=== PATIENT | male | born 1945 | race Hispanic/Latino ===

== ENCOUNTER 2019-04-02 18:02 | Inpatient (IN) | payer MEDICARE, BC ==
[2019-04-02 18:17] VITALS: BMI 23.7
--- NOTE | 2019-04-02 18:40 | C.PDOC ---
History Of Present Illness 73 year old male presents to the ED for evaluation of left leg swelling for the past week. Patient reports he had bee resting his leg on recliner, felt and injured his right hip. Patient denies fever, chills, nausea, vomit, CP, SOB, weakness, numbness, other injuries. Time Seen by Provider: 04/02/19 18:37 Chief Complaint (Nursing): Lower Extremity Problem/Injury History Per: Patient History/Exam Limitations: no limitations Onset/Duration Of Symptoms: Days Current Symptoms Are (Timing): Still Present Recent travel outside of the [place]: No Additional History Per: Patient Past Medical History Reviewed: Historical Data, Nursing Documentation, Vital Signs Vital Signs: Last Vital Signs Temp 98.1 F 04/02/19 18:18 Pulse 93 H 04/02/19 18:18 Resp 19 04/02/19 18:18 BP 151/75 H 04/02/19 18:18 Pulse Ox 100 04/02/19 18:18 Primary Care Provider: Samm Banda - Medical History PMH: CVA, HTN Surgical History: No Surg Hx - [facility] Procedures PACKED CELL TRANSFUSION (06/28/13) Family History: States: Unknown Family Hx - Social History Hx Tobacco Use: Yes Hx Alcohol Use: Yes Hx Substance Use: No - Immunization History Hx Tetanus Toxoid Vaccination: No Hx Influenza Vaccination: Yes Hx Pneumococcal Vaccination: No Review Of Systems Constitutional: Negative for: Fever, Chills Cardiovascular: Negative for: Chest Pain Respiratory: Negative for: Shortness of Breath Gastrointestinal: Negative for: Nausea, Vomiting, Abdominal Pain Musculoskeletal: Positive for: Leg Pain Skin: Negative for: Rash Neurological: Negative for: Weakness, Numbness, Headache Physical Exam - Physical Exam Appears: Non-toxic, No Acute Distress Skin: Normal Color, Warm, Dry Head: Atraumatic, Normacephalic Eye(s): bilateral: Normal Inspection Neck: Normal ROM, Supple Chest: Symmetrical Cardiovascular: Rhythm Regular Respiratory: Normal Breath Sounds, No Rales, No Rhonchi, No Wheezing Gastrointestinal/Abdominal: Soft, No Tenderness, No Guarding, No Rebound Extremity: Capillary Refill (< 2 seconds) Extremity: Bilateral: Atraumatic, Normal ROM, Other (cool feet) Pulses: Left Dorsalis Pedis: Normal (doppler), Right Dorsalis Pedis: Normal (doppler) Neurological/Psych: Oriented x3, Normal Speech, Normal Cognition Gait: Steady ED Course And Treatment - Laboratory Results Result Diagrams: 04/06/19 08:09 04/06/19 08:09 O2 Sat by Pulse Oximetry: 100 (ON RA) Pulse Ox Interpretation: Normal Progress Note: Plan: - Labs. - Hip x-Ray. - Right femur X-Ray Medical Decision Making Medical Decision Making: beside us pos for dvt. also bidnings of diminshed pulses b/l suspect chronic. (+)doppler pulses. seen by pmjd bedside heparin started. Disposition - Disposition Disposition: HOSPITALIZED Disposition Time: 08:00 Condition: STABLE - Clinical Impression Clinical Impression: Deep venous thrombosis of lower extremity - Scribe Statement The provider has reviewed the documentation as recorded by the Scribe Mingo Sawyer All medical record entries made by the Scribe were at my direction and personally dictated by me. I have reviewed the chart and agree that the record accurately reflects my personal performance of the history, physical exam, medical decision making, and the department course for this patient. I have also personally directed, reviewed, and agree with the discharge instructions and disposition. Decision To Admit - Pt Status Changed To: Hospital Disposition Of: Inpatient - Admit Certification Admit to Inpatient:: After my assessment, the patient will require hospitalization for at least two midnights. This is because of the severity of symptoms shown, intensity of services needed, and/or the medical risk in this patient being treated as an outpatient. - InPatient: Physician Admission Certification: I certify that this patient requires 2 or more midnights of care for the following reason:: large clot need s iv heparin - . Bed Request Type: Regular Admitting Physician: Samm Banda Patient Diagnosis: Deep venous thrombosis of lower extremity
[2019-04-02 19:15] LABS: BASO # 0.1 K/uL (0.0-0.2); BASO % 0.5 % (0.0-2.0); EOS # 0.1 K/uL (0.0-0.7); EOS % 0.8 % (0.0-4.0); HEMOGLOBIN 13.3 g/dL (12.0-18.0); LYMPH # 1.8 K/uL (1.0-4.3); LYMPH % 14.9 % (20.0-40.0); MEAN CELL VOLUME 85.9 fL (80.0-94.0); MEAN CORPUSCULAR HEMOGLOBIN 29.3 pg (27.0-31.0); MEAN CORPUSCULAR HGB CONC 34.1 g/dL (33.0-37.0); MEAN PLATELET VOLUME 8.1 fL (7.2-11.7); MONO % 8.1 % (0.0-10.0); NEUT # 9.3 K/uL (1.8-7.0); NEUT % 75.7 % (50.0-75.0); RBC 4.53 Mil/uL (4.40-5.90); RED CELL DISTRIBUTION WIDTH 14.7 % (11.5-14.5); WHITE BLOOD COUNT 12.4 K/uL (4.8-10.8)
[2019-04-02 19:24] LABS: ALBUMIN 4.1 g/dL (3.5-5.0); ALT/SGPT 7 U/L (21-72); AST/SGOT 12 U/L (17-59); BLOOD UREA NITROGEN 16 mg/dL (9-20); CALCIUM 9.7 mg/dl (8.6-10.4); GFR NON-AFRICAN AMERICAN 50
[2019-04-02 19:26] LABS: INR 1.2; PARTIAL THROMBOPLASTIN TIME 30.2 SECONDS (21-34); PROTHROMBIN TIME 13.1 SECONDS (9.7-12.2)
[2019-04-02] MEDS ORDERED: Enoxaparin 150 mg Syringe SC STA (19:52)
[2019-04-02] MEDS: Enoxaparin 60 mg Syringe SC SCH (19:54)
[2019-04-02] MEDS ORDERED: Enoxaparin 80 mg Syringe ONE (19:59)
[2019-04-02] MEDS: Oxycodone/Acetaminophen 5/325 mg Tab PO PRN (22:34)
[2019-04-02 22:53] VITALS: RESP 20
--- NOTE | 2019-04-03 03:55 | CP.PCM.HP ---
Present on Admission - Present on Admission Any Indicators Present on Admission: Yes History of Uncontrolled Diabetes: Yes Past Patient History - Past Social History Smoking Status: Heavy Smoker > 10 Cigarettes Daily - CARDIAC Hx Hypertension: Yes - NEUROLOGICAL HX Cerebrovascular Accident: Yes - ENDOCRINE/METABOLIC Hx Diabetes Mellitus Type 2: Yes - INTEGUMENTARY Hx Dermatological Problems: Yes Other/Comment: Skin cancer to L ear. - MUSCULOSKELETAL/RHEUMATOLOGICAL Hx Falls: Yes - PSYCHIATRIC Hx Substance Use: No - SURGICAL HISTORY Other/Comment: B/L eye sx. B/L ear sx - ANESTHESIA Hx Anesthesia: Yes Hx Anesthesia Reactions: No Meds Allergies/Adverse Reactions: Allergies Allergy/AdvReac Type Severity Reaction Status Date / Time No Known Allergies Allergy Verified 04/02/19 18:17 Results - Vital Signs Recent Vital Signs: Last Vital Signs Temp 98.8 F 04/02/19 23:34 Pulse 103 H 04/02/19 23:34 Resp 20 04/02/19 23:34 BP 145/77 04/02/19 23:34 Pulse Ox 97 04/02/19 23:34 - Labs Result Diagrams: 04/02/19 19:09 04/02/19 19:09 Labs: Laboratory Results - last 24 hr 04/02/19 04/02/19 04/02/19 19:09 19:09 19:09 WBC 12.4 H RBC 4.53 Hgb 13.3 D Hct 38.9 MCV 85.9 D MCH 29.3 MCHC 34.1 RDW 14.7 H Plt Count 332 MPV 8.1 Neut % (Auto) 75.7 H Lymph % (Auto) 14.9 L [place] % (Auto) 8.1 Eos % (Auto) 0.8 Baso % (Auto) 0.5 Neut # (Auto) 9.3 H Lymph # (Auto) 1.8 [place] # (Auto) 1.0 H Eos # (Auto) 0.1 Baso # (Auto) 0.1 PT 13.1 H INR 1.2 APTT 30.2 D-Dimer, Quantitative 2384 H Sodium 136 Potassium 5.1 Chloride 99 Carbon Dioxide 24 Anion Gap 18 BUN 16 Creatinine 1.4 Est GFR ( Amer) > 60 Est GFR (Non-Af Amer) 50 Random Glucose 259 H D Calcium 9.7 Total Bilirubin 0.5 AST 12 L ALT 7 L D Alkaline Phosphatase 104 Total Protein 8.4 H Albumin 4.1 Globulin 4.3 H Albumin/Globulin Ratio 1.0
--- NOTE | 2019-04-03 04:06 | CP.PCM.CON ---
History of Present Illness - History of Present Illness History of Present Illness: Vascular Surgery Consult Note for Dr. Norton Consult: PAD HPI: 73 year old male, past medical history significant for CVA, CAD, HTN, DM, HLD, Skin cancer on R ear, consulted for peripheral vascular disease. Patient states that he hurt his right hip by falling over 5 weeks ago. When he saw his PMD, he refused xrays/imaging. He has remained ambulatory since that time without pain or difficulty. In the last 3 days he noticed left lower extremity swelling that has gradually improved. There is no pain associated with the swelling. Denies f/c, n/v/d, SOB, CP, or urinary symptoms. PMH: CVA, CAD, HTN, DM, HLD, Skin cancer on R ear, Kidney stones PSH: Denies FH: Noncontributory SH: Smokes 1.5 PPD since age 12, social drinker, denies illicit drug use. Lives alone at home ALL: NKDA Meds: See MAR Review of Systems - Constitutional Constitutional: absent: Chills, Fever, Weight Loss - EENT Eyes: absent: Blurred Vision, Change in Vision Nose/Mouth/Throat: absent: Nasal Congestion, Nasal Discharge - Cardiovascular Cardiovascular: absent: Chest Pain, Dyspnea - Respiratory Respiratory: absent: Cough, Dyspnea - Gastrointestinal Gastrointestinal: absent: Abdominal Pain, Nausea, Vomiting - Genitourinary Genitourinary: absent: Difficulty Urinating, Dysuria - Musculoskeletal Musculoskeletal: Limited Range of Motion. absent: Back Pain, Deformity, Muscle Cramps, Neck Pain, Tingling - Integumentary Integumentary: Swelling. absent: Bleeding Lesions, Change in Hair, Changing Lesions, Skin Pain, Wounds - Neurological Neurological: absent: Abnormal Gait, Confusion, Dizziness, Lack of Coordination, Radicular Pain, Vertigo - Psychiatric Psychiatric: absent: Anxiety, Depression Past Patient History - Past Social History Smoking Status: Heavy Smoker > 10 Cigarettes Daily - CARDIAC Hx Hypertension: Yes - NEUROLOGICAL HX Cerebrovascular Accident: Yes - ENDOCRINE/METABOLIC Hx Diabetes Mellitus Type 2: Yes - INTEGUMENTARY Hx Dermatological Problems: Yes Other/Comment: Skin cancer to L ear. - MUSCULOSKELETAL/RHEUMATOLOGICAL Hx Falls: Yes - PSYCHIATRIC Hx Substance Use: No - SURGICAL HISTORY Other/Comment: B/L eye sx. B/L ear sx - ANESTHESIA Hx Anesthesia: Yes Hx Anesthesia Reactions: No Meds Allergies/Adverse Reactions: Allergies Allergy/AdvReac Type Severity Reaction Status Date / Time No Known Allergies Allergy Verified 04/02/19 18:17 - Medications Medications: Current Medications Aspirin (Ecotrin) 81 mg PO DAILY [facility] Enoxaparin Sodium (Lovenox) 60 mg SC Q12 [facility] Last Admin: 04/02/19 19:54 Dose: Not Given Finasteride (Proscar) 5 mg PO DAILY [facility] Insulin Human Regular (Novolin R) 0 unit SC ACHS [facility]; Protocol Oxycodone/Acetaminophen (Percocet 5/325 Mg Tab) 2 tab PO Q6H PRN PRN Reason: Pain, moderate (4-7) Stop: 04/05/19 19:17 Last Admin: 04/02/19 22:34 Dose: 2 tab Pneumococcal Polyvalent Vaccine (Pneumovax 23 Vaccine) 0.5 ml IM .ONCE ONE Stop: 04/03/19 10:01 Rosuvastatin Calcium (Crestor) 10 mg PO [facility] Last Admin: 04/02/19 21:49 Dose: 10 mg Physical Exam - Constitutional Appears: Well, Non-toxic, No Acute Distress - Head Exam Head Exam: ATRAUMATIC, NORMAL INSPECTION, NORMOCEPHALIC - Eye Exam Eye Exam: EOMI Pupil Exam: PERRL - ENT Exam ENT Exam: Mucous Membranes Dry - Respiratory Exam Respiratory Exam: NORMAL BREATHING PATTERN. absent: Wheezes, Respiratory Distress - Cardiovascular Exam Cardiovascular Exam: +S1, +S2 - GI/Abdominal Exam GI & Abdominal Exam: Normal Bowel Sounds, Soft. absent: Tenderness - Extremities Exam Extremities exam: Positive for: pedal edema, pedal pulses present. Negative for: calf tenderness, joint swelling, tenderness Additional comments: left lower extremity swelling and mild erythema of the foot palpable right and left DP/PT pulses - Neurological Exam Neurological exam: Alert, Oriented x3 - Psychiatric Exam Psychiatric exam: Normal Affect, Normal Mood - Skin Skin Exam: Dry, Erythema, Intact, Normal Color, Warm Results - Vital Signs Recent Vital Signs: Last Vital Signs Temp 98.8 F 04/02/19 23:34 Pulse 103 H 04/02/19 23:34 Resp 20 04/02/19 23:34 BP 145/77 04/02/19 23:34 Pulse Ox 97 04/02/19 23:34 - Labs Result Diagrams: 04/02/19 19:09 04/02/19 19:09 Labs: Laboratory Results - last 24 hr 04/02/19 04/02/19 04/02/19 19:09 19:09 19:09 WBC 12.4 H RBC 4.53 Hgb 13.3 D Hct 38.9 MCV 85.9 D MCH 29.3 MCHC 34.1 RDW 14.7 H Plt Count 332 MPV 8.1 Neut % (Auto) 75.7 H Lymph % (Auto) 14.9 L [place] % (Auto) 8.1 Eos % (Auto) 0.8 Baso % (Auto) 0.5 Neut # (Auto) 9.3 H Lymph # (Auto) 1.8 [place] # (Auto) 1.0 H Eos # (Auto) 0.1 Baso # (Auto) 0.1 PT 13.1 H INR 1.2 APTT 30.2 D-Dimer, Quantitative 2384 H Sodium 136 Potassium 5.1 Chloride 99 Carbon Dioxide 24 Anion Gap 18 BUN 16 Creatinine 1.4 Est GFR ( Amer) > 60 Est GFR (Non-Af Amer) 50 Random Glucose 259 H D Calcium 9.7 Total Bilirubin 0.5 AST 12 L ALT 7 L D Alkaline Phosphatase 104 Total Protein 8.4 H Albumin 4.1 Globulin 4.3 H Albumin/Globulin Ratio 1.0 Assessment & Plan - Assessment and Plan (Free Text) Assessment: 73M w/ new onset left lower extremity swelling s/p fall 5 weeks ago Plan: FU duplex US FU arterial US FU CTA KARMA/PVRs Leg elevation Compression stockings Further recommendations pending attending evaluation Will D/w Dr. Errol Medina PGY1
[2019-04-03] MEDS: Oxycodone/Acetaminophen 5/325 mg Tab PO PRN ×4 (04:10→23:40)
--- NOTE | 2019-04-03 07:21 | CP.PCM.PN ---
Subjective - Date & Time of Evaluation Date of Evaluation: 04/03/19 Time of Evaluation: 07:15 - Subjective Subjective: Vascular surgery note for Dr. Norton Patient seen and examined at bedside. No acute event overnight. Patient still reports swelling in LLE but denies pain. He states he is tolerating diet, pasing flatus and having bm. Patient denies fever/chills, cp, SOB, abd pain, n/v/d. Objective - Vital Signs/Intake and Output Vital Signs (last 24 hours): Temp Pulse Resp BP Pulse Ox 98.8 F 103 H 20 145/77 97 04/02/19 23:34 04/02/19 23:34 04/02/19 23:34 04/02/19 23:34 04/02/19 23:34 - Medications Medications: Current Medications Aspirin (Ecotrin) 81 mg PO DAILY [facility] Enoxaparin Sodium (Lovenox) 60 mg SC Q12 [facility] Last Admin: 04/02/19 19:54 Dose: Not Given Finasteride (Proscar) 5 mg PO DAILY [facility] Insulin Human Regular (Novolin R) 0 unit SC [facility]; Protocol Oxycodone/Acetaminophen (Percocet 5/325 Mg Tab) 2 tab PO Q6H PRN PRN Reason: Pain, moderate (4-7) Stop: 04/05/19 19:17 Last Admin: 04/03/19 04:10 Dose: 2 tab Pneumococcal Polyvalent Vaccine (Pneumovax 23 Vaccine) 0.5 ml IM .ONCE ONE Stop: 04/03/19 10:01 Rosuvastatin Calcium (Crestor) 10 mg PO [facility] Last Admin: 04/02/19 21:49 Dose: 10 mg - Labs Labs: 04/02/19 19:09 04/02/19 19:09 PT 13.1 SECONDS (9.7-12.2) H 04/02/19 19:09 INR 1.2 04/02/19 19:09 APTT 30.2 SECONDS (21-34) 04/02/19 19:09 - Additional Findings Additional findings: - Constitutional Appears: Well, Non-toxic, No Acute Distress - Head Exam Head Exam: ATRAUMATIC, NORMAL INSPECTION, NORMOCEPHALIC - Eye Exam Eye Exam: EOMI Pupil Exam: PERRL - ENT Exam ENT Exam: Mucous Membranes Dry - Respiratory Exam Respiratory Exam: NORMAL BREATHING PATTERN. absent: Wheezes, Respiratory Distress - Cardiovascular Exam Cardiovascular Exam: +S1, +S2 - GI/Abdominal Exam GI & Abdominal Exam: Normal Bowel Sounds, Soft. absent: Tenderness - Extremities Exam Extremities exam: Positive for: pedal edema, pedal pulses present. Negative for: calf tenderness, joint swelling, tenderness Additional comments: left lower extremity swelling and mild erythema of the foot palpable right and left DP/PT pulses - Neurological Exam Neurological exam: Alert, Oriented x3 - Psychiatric Exam Psychiatric exam: Normal Affect, Normal Mood - Skin Skin Exam: Dry, Erythema, Intact, Normal Color, Warm Assessment and Plan - Assessment and Plan (Free Text) Assessment: 73M with new onset left lower extremity swelling s/p fall 5 weeks ago need to rule out DVT Plan: FU duplex US FU arterial US Leg elevation Compression stockings Further recommendations as per Dr. Errol thomas PGY2
[2019-04-03] MEDS: (Novolin R) Insulin Human Regular 100 units/ml vial SC SCH ×4 (08:18→21:42)
[2019-04-03] MEDS ORDERED: Iodixanol 320 mg/ml 150 ml Bottle IV ONE (09:05)
--- NOTE | 2019-04-03 09:08 | RAD ---
Date of service: 04/02/2019 PROCEDURE: HISTORY: Trauma COMPARISON: None TECHNIQUE: Four views FINDINGS: No fracture or lytic lesion. Degenerative joint space narrowing right hip and mostly medial right femoral tibial joint compartment. Soft tissue Atherosclerotic vascular calcifications present. IMPRESSION: No fracture or lytic lesion seen. Right hip and right knee arthrosis. Atherosclerotic vascular calcifications/disease
--- NOTE | 2019-04-03 09:10 | RAD ---
Date of service: 04/02/2019 PROCEDURE: Radiographs of the pelvis. HISTORY: trauma COMPARISON: None. TECHNIQUE: 1 view obtained. FINDINGS: BONES: Pelvic Bones: Unremarkable. Hips: Mild hip joint space narrowing-bilateral JOINTS: Sacroiliac Joints: Trace sclerotic changes small focal areas mid SI joint levels-bilateral Pubic Symphysis: Trace degenerative subchondral sclerotic changes. OTHER FINDINGS: Atherosclerotic vascular calcifications present. Partly visualized inferior lumbar spondylosis. IMPRESSION: No fracture or lytic lesion. Mild inferior lumbar degenerative changes. Degenerative type minimal-mild sclerotic changes SI joints and pubic symphysis. Atherosclerotic vascular calcifications present.
[2019-04-03] MEDS ORDERED: Pneumococcal 23-Valent Vaccine IM ONE (10:00)
[2019-04-03] MEDS: Enoxaparin 60 mg Syringe SC SCH ×2 (10:44→21:44)
--- NOTE | 2019-04-03 12:06 | CT ---
Date of service: 04/03/2019 PROCEDURE: CT Angiography Abdomen, Pelvis and Lower Extremity with Contrast HISTORY: r/o PAD COMPARISON: None available. TECHNIQUE: Technique: CT angiography of the abdomen, pelvis and bilateral lower extremities performed in the arterial phase of enhancement. Coronal and sagittal reformats, and well as rotating MIP images of the vessels generated at the workstation. Intravenous contrast dose: 150 milliliters Visipaque 320 Radiation dose: Total exam DLP = 2297.27 mGy-cm. This CT exam was performed using one or more of the following dose reduction techniques: Automated exposure control, adjustment of the mA and/or kV according to patient size, and/or use of iterative reconstruction technique. FINDINGS: CT ANGIOGRAPHY: ABDOMINAL AORTA:: Moderate soft and calcific plaque throughout the abdominal aorta without stenosis or aneurysm. MAJOR AORTIC BRANCHES: Celiac [place]: Unremarkable. Superior mesenteric artery: Unremarkable. Inferior mesenteric artery: Unremarkable. Renal arteries: Unremarkable. PELVIC ARTERIES: Right Common Iliac: Unremarkable. Right External Iliac: Moderate plaque throughout the external iliac moderate stenosis in the proximal and mid segments. Right Internal Iliac: The plaque and moderate stenosis. Left Common Iliac: Mild plaque and no significant stenosis. Left External Iliac: Mild plaque and no significant stenosis. Left Internal Iliac: Unremarkable. RIGHT LOWER EXTREMITY ARTERIES: Right Common Femoral: Unremarkable. Right Superficial Femoral: Mild plaque with no significant stenosis. Right Profunda Femoris: Stenosis proximal profunda femoral artery. Right Popliteal:Unremarkable. Right Anterior Tibial: Heavily calcified with severe stenosis and occlusion in the proximal segment. Also likely occluded in the mid and distal segments. Right Tibioperoneal Trunk: Unremarkable. Right Posterior Tibial: Severely stenotic or occluded in the proximal mid segments. Right Peroneal: Stenosis in the proximal segment. Right dorsalis pedis : Unremarkable. LEFT LOWER EXTREMITY ARTERIES: Left Common Femoral: Unremarkable. Left Superficial Femoral: Mild plaque with no significant stenosis. Left Profunda Femoris: Unremarkable. Left Popliteal: Mild stenosis of popliteal artery. Left Anterior Tibial: Moderately stenotic in the proximal segment which is otherwise patent. Severe stenosis of the distal segment. Left Tibioperoneal Trunk: Unremarkable. Left Posterior Tibial: Stenosis or occlusion of proximal segment. Reconstitution of the mid and distal segments.. Left Peroneal: Unremarkable. Left Dorsalis pedis: Unremarkable. NON-ANGIOGRAPHIC ASPECT OF THE EXAM: LOWER THORAX: Unremarkable. LIVER: Unremarkable. No gross lesion or ductal dilatation. GALLBLADDER AND BILE DUCTS: Unremarkable. PANCREAS: Unremarkable. No gross lesion or ductal dilatation. SPLEEN: Unremarkable. ADRENALS: Unremarkable. No mass. KIDNEYS AND URETERS: Slight perinephric stranding. Multiple hypodense lesions throughout the kidney most of which are consistent with cysts. Some are too small to characterize. STOMACH AND BOWEL: Unremarkable. No obstruction. No gross mural thickening. APPENDIX: Normal appendix. PERITONEUM: Unremarkable. No free fluid. No free air. LYMPH NODES: There is several subcentimeter retroperitoneal lymph nodes. There is also a larger portacaval node measuring 2.2 x 1.2 cm and a 1.4 cm gastrohepatic lymph node. BLADDER: Unremarkable. REPRODUCTIVE: Unremarkable. BONES: No acute fracture. OTHER FINDINGS: None. IMPRESSION: CT angiogram abdomen/pelvis: 1. There is moderate calcific and soft plaque throughout the abdominal aorta without significant stenosis or aneurysm. 2. There is moderate stenosis of the right external iliac artery. There is moderate plaque in the right common iliac artery without significant stenosis. 3. Left common iliac artery and external iliac artery have mild plaque with no stenosis.. Right lower extremity CT angiogram: 1. The common femoral artery is unremarkable. 2. Moderate stenosis of the proximal profunda femoral artery. 3. Moderate plaque in the SFA without significant stenosis. 4. Popliteal artery is unremarkable. 5. Runoff shows a mild stenosis of the proximal peroneal artery which is otherwise unremarkable. Anterior tibial artery is heavily calcified in the proximal segment and severely stenotic. Mid and distal anterior tibial artery is likely occluded. Posterior tibial artery is occluded or severely stenotic in the proximal mid segments. Distal reconstitution. Left lower extremity CT angiogram: 1. The common femoral artery, profunda femoral artery, superficial femoral artery are normal. 2. Mild stenosis of popliteal artery 3. Runoff shows a patent peroneal artery. The posterior tibial artery is severely stenotic or occluded in the proximal segment with distal reconstitution. Anterior tibial artery is mildly stenotic in the proximal segment then is severely stenotic or occluded in the mid and distal segment. Nonvascular: There is a large portacaval lymph node measuring 2.2 x 1.4 centimeter and a gastrohepatic lymph node measuring 1.4 centimeters.
--- NOTE | 2019-04-03 14:47 | CP.PCM.CON ---
History of Present Illness - History of Present Illness History of Present Illness: Reason for consultation: Long history of smoking/COPD 73-year-old male with history of coronary artery disease, hypertension, diabetes , hyperlipidemia, CVA, skin cancer of right ear admitted with left lower extremity swelling and right hip pain after he fell 5 weeks ago. Also complaining of dyspnea on minimal exertion and slight cough. Patient has a long history of smoking but denies fever chills, denies chest pain. PMH: CVA, CAD, HTN, DM, HLD, Skin cancer on R ear, Kidney stones PSH: Denies FH: Noncontributory SH: Smokes 1.5 PPD since age 12, social drinker, denies illicit drug use. Lives alone at home ALL: NKDA Review of Systems - Review of Systems All systems: reviewed and no additional remarkable complaints except (Shortness of breath and cough) Past Patient History - Past Social History Smoking Status: Heavy Smoker > 10 Cigarettes Daily - CARDIAC Hx Hypertension: Yes - NEUROLOGICAL HX Cerebrovascular Accident: Yes - ENDOCRINE/METABOLIC Hx Diabetes Mellitus Type 2: Yes - INTEGUMENTARY Hx Dermatological Problems: Yes Other/Comment: Skin cancer to L ear. - MUSCULOSKELETAL/RHEUMATOLOGICAL Hx Falls: Yes - PSYCHIATRIC Hx Substance Use: No - SURGICAL HISTORY Other/Comment: B/L eye sx. B/L ear sx - ANESTHESIA Hx Anesthesia: Yes Hx Anesthesia Reactions: No Meds Allergies/Adverse Reactions: Allergies Allergy/AdvReac Type Severity Reaction Status Date / Time No Known Allergies Allergy Verified 04/02/19 18:17 - Medications Medications: Current Medications Aspirin (Ecotrin) 81 mg PO DAILY [facility] Last Admin: 04/03/19 10:44 Dose: 81 mg Enoxaparin Sodium (Lovenox) 60 mg SC Q12 [facility] Last Admin: 04/03/19 10:44 Dose: 60 mg Finasteride (Proscar) 5 mg PO DAILY [facility] Last Admin: 04/03/19 10:44 Dose: 5 mg Insulin Human Regular (Novolin R) 0 unit SC ACHS [facility]; Protocol Last Admin: 04/03/19 11:52 Dose: 10 units Metformin HCl (Glucophage) 500 mg PO BIDCC [facility] Oxycodone/Acetaminophen (Percocet 5/325 Mg Tab) 2 tab PO Q6H PRN PRN Reason: Pain, moderate (4-7) Stop: 04/05/19 19:17 Last Admin: 04/03/19 10:44 Dose: 2 tab Rosuvastatin Calcium (Crestor) 10 mg PO HS [facility] Last Admin: 04/02/19 21:49 Dose: 10 mg Physical Exam - Head Exam Head Exam: ATRAUMATIC, NORMOCEPHALIC - Eye Exam Eye Exam: Normal appearance - ENT Exam ENT Exam: Mucous Membranes Moist - Neck Exam Neck exam: Positive for: Normal Inspection - Respiratory Exam Respiratory Exam: Decreased Breath Sounds - Cardiovascular Exam Cardiovascular Exam: REGULAR RHYTHM - GI/Abdominal Exam GI & Abdominal Exam: Normal Bowel Sounds, Soft - Extremities Exam Extremities exam: Positive for: pedal edema Results - Vital Signs Recent Vital Signs: Last Vital Signs Temp 98.1 F 04/03/19 07:00 Pulse 77 04/03/19 07:00 Resp 20 04/03/19 07:00 BP 115/70 04/03/19 07:00 Pulse Ox 95 04/03/19 07:00 - Labs Result Diagrams: 04/02/19 19:09 04/02/19 19:09 Labs: Laboratory Results - last 24 hr 04/02/19 04/02/19 04/02/19 19:09 19:09 19:09 WBC 12.4 H RBC 4.53 Hgb 13.3 D Hct 38.9 MCV 85.9 D MCH 29.3 MCHC 34.1 RDW 14.7 H Plt Count 332 MPV 8.1 Neut % (Auto) 75.7 H Lymph % (Auto) 14.9 L Becker % (Auto) 8.1 Eos % (Auto) 0.8 Baso % (Auto) 0.5 Neut # (Auto) 9.3 H Lymph # (Auto) 1.8 Becker # (Auto) 1.0 H Eos # (Auto) 0.1 Baso # (Auto) 0.1 PT 13.1 H INR 1.2 APTT 30.2 D-Dimer, Quantitative 2384 H Sodium 136 Potassium 5.1 Chloride 99 Carbon Dioxide 24 Anion Gap 18 BUN 16 Creatinine 1.4 Est GFR ( Amer) > 60 Est GFR (Non-Af Amer) 50 POC Glucose (mg/dL) Random Glucose 259 H D Calcium 9.7 Total Bilirubin 0.5 AST 12 L ALT 7 L D Alkaline Phosphatase 104 Total Protein 8.4 H Albumin 4.1 Globulin 4.3 H Albumin/Globulin Ratio 1.0 05/14/19 05/14/19 07:51 11:00 WBC RBC Hgb Hct MCV MCH MCHC RDW Plt Count MPV Neut % (Auto) Lymph % (Auto) Becker % (Auto) Eos % (Auto) Baso % (Auto) Neut # (Auto) Lymph # (Auto) Becker # (Auto) Eos # (Auto) Baso # (Auto) PT INR APTT D-Dimer, Quantitative Sodium Potassium Chloride Carbon Dioxide Anion Gap BUN Creatinine Est GFR ( Amer) Est GFR (Non-Af Amer) POC Glucose (mg/dL) 273 H 412 H* Random Glucose Calcium Total Bilirubin AST ALT Alkaline Phosphatase Total Protein Albumin Globulin Albumin/Globulin Ratio Assessment & Plan (1) COPD (chronic obstructive pulmonary disease) Assessment and Plan: Start nebulizer treatment and PFTs as outpatient Status: Acute (2) Smoking addiction Assessment and Plan: Low-dose CAT scan of the chest to rule out lung nodule Status: Acute
--- NOTE | 2019-04-03 16:54 | CT ---
Date of service: 04/03/2019 PROCEDURE: CT Chest without contrast. HISTORY: Lung cancer screening COMPARISON: None. TECHNIQUE: Contiguous axial images were obtained through the chest without intravenous contrast enhancement. Sagittal and coronal reconstructions were performed. Maximum intensity projection (MIP) reconstructed images in the following planes: Axial only. Radiation dose (DLP): 117.67mGy-cm. This CT exam was performed using one or more of the following dose reduction techniques: Automated exposure control, adjustment of the mA and/or kV according to patient size, and/or use of iterative reconstruction technique. FINDINGS: Nodules: None. LUNGS: Normal lung parenchyma. Normal airway MEDIASTINUM: No thoracic aortic aneurysm. Normal size heart. Main pulmonary artery normal in size. The thyroid is normal. The esophagus is normal. Atherosclerotic calcification and mural plaque present. Findings are seen throughout the aorta LYMPH NODES: No significant lymphadenopathy. BONES: No fracture. No destructive lesion. UPPER ABDOMEN: No abnormality. OTHER FINDINGS: None. IMPRESSION: Lung - RADS 1: Negative. Recommendation: Continue annual screening with low dose CT in [address] shows that you have findings which will require follow-up imaging as per the [employer] guidelines.
--- NOTE | 2019-04-03 17:58 | CP.PCM.CON ---
<Benji Lombardi - Last Filed: 04/03/19 17:53> History of Present Illness - History of Present Illness History of Present Illness: PGY2 Cardiology Consult Note for Dr. Dimas Reason for Consult: PAD/CAD Patient is a 73 year old male with a past medical history of CVA, CAD, HTN, DM, HLD, kidney stones and skin CA on right ear presented to the hospital with a complaint of left leg swelling. He had initially fell and injured his right hip a few weeks ago so he had been resting his legs on a recliner. He has been feeling well and hip has not been hurting him as much, but his left leg has cont inued to swell. He started experiencing pain which brought him to the hospital. He had compression stockings placed and has been laying in bed since he was admitted yesterday. He reports that the swelling has decreased drastically and he is having minimal pain at this time. Denies fevers, chills, nausea, vomiting, diarrhea, constipation, chest pain, shortness of breath, diaphoresis, numbness or tingling. PMH: CVA, CAD, HTN, DM, HLD, kidney stones and skin CA on right ear PSH: Denies Family: Noncontributory Social: Smokes 1.5 PPD since age 12 (90+ pack year history), social drinker, denies illicit drug use. Lives alone at home ALL: NKDA Review of Systems - Review of Systems All systems: reviewed and no additional remarkable complaints except (as per HPI) Past Patient History - Past Medical History & Family History Past Medical History?: Yes - Past Social History Smoking Status: Heavy Smoker > 10 Cigarettes Daily - CARDIAC Hx Hypertension: Yes - NEUROLOGICAL HX Cerebrovascular Accident: Yes - ENDOCRINE/METABOLIC Hx Diabetes Mellitus Type 2: Yes - INTEGUMENTARY Hx Dermatological Problems: Yes Other/Comment: Skin cancer to L ear. - MUSCULOSKELETAL/RHEUMATOLOGICAL Hx Falls: Yes - PSYCHIATRIC Hx Substance Use: No - SURGICAL HISTORY Other/Comment: B/L eye sx. B/L ear sx - ANESTHESIA Hx Anesthesia: Yes Hx Anesthesia Reactions: No Meds Allergies/Adverse Reactions: Allergies Allergy/AdvReac Type Severity Reaction Status Date / Time No Known Allergies Allergy Verified 04/02/19 18:17 - Medications Medications: Current Medications Albuterol/Ipratropium (Duoneb 3 Mg/0.5 Mg (3 Ml) Ud) 3 ml INH RQ6 [facility] Aspirin (Ecotrin) 81 mg PO DAILY [facility] Last Admin: 04/03/19 10:44 Dose: 81 mg Enoxaparin Sodium (Lovenox) 60 mg SC Q12 [facility] Last Admin: 04/03/19 10:44 Dose: 60 mg Finasteride (Proscar) 5 mg PO DAILY [facility] Last Admin: 04/03/19 10:44 Dose: 5 mg Insulin Human Regular (Novolin R) 0 unit SC ACHS [facility]; Protocol Last Admin: 04/03/19 17:34 Dose: 2 units Metformin HCl (Glucophage) 500 mg PO BIDCC [facility] Last Admin: 04/03/19 17:33 Dose: 500 mg Oxycodone/Acetaminophen (Percocet 5/325 Mg Tab) 2 tab PO Q6H PRN PRN Reason: Pain, moderate (4-7) Stop: 04/05/19 19:17 Last Admin: 04/03/19 17:33 Dose: 2 tab Rosuvastatin Calcium (Crestor) 10 mg PO HS [facility] Last Admin: 04/02/19 21:49 Dose: 10 mg Physical Exam - Constitutional Appears: Non-toxic, No Acute Distress - Head Exam Head Exam: ATRAUMATIC, NORMOCEPHALIC - Eye Exam Eye Exam: Normal appearance - ENT Exam ENT Exam: Mucous Membranes Moist - Neck Exam Neck exam: Negative for: Lymphadenopathy, Thyromegaly - Respiratory Exam Respiratory Exam: Clear to Auscultation Bilateral, NORMAL BREATHING PATTERN. absent: Accessory Muscle Use, Rales, Rhonchi, Wheezes, Respiratory Distress - Cardiovascular Exam Cardiovascular Exam: REGULAR RHYTHM, +S1 - GI/Abdominal Exam GI & Abdominal Exam: Normal Bowel Sounds, Soft. absent: Distended, Firm, Guarding, Tenderness - Extremities Exam Extremities exam: Positive for: calf tenderness (left calf), pedal edema (1+ pitting b/l (left > right)), pedal pulses present - Neurological Exam Neurological exam: Alert - Psychiatric Exam Psychiatric exam: Normal Affect, Normal Mood - Skin Skin Exam: Dry, Warm Results - Vital Signs Recent Vital Signs: Last Vital Signs Temp 98.2 F 04/03/19 15:52 Pulse 73 04/03/19 15:52 Resp 20 04/03/19 15:52 BP 129/77 04/03/19 15:52 Pulse Ox 97 04/03/19 15:52 - Labs Result Diagrams: 04/02/19 19:09 04/02/19 19:09 Labs: Laboratory Results - last 24 hr 04/02/19 04/02/19 04/02/19 19:09 19:09 19:09 WBC 12.4 H RBC 4.53 Hgb 13.3 D Hct 38.9 MCV 85.9 D MCH 29.3 MCHC 34.1 RDW 14.7 H Plt Count 332 MPV 8.1 Neut % (Auto) 75.7 H Lymph % (Auto) 14.9 L Kershaw % (Auto) 8.1 Eos % (Auto) 0.8 Baso % (Auto) 0.5 Neut # (Auto) 9.3 H Lymph # (Auto) 1.8 Kershaw # (Auto) 1.0 H Eos # (Auto) 0.1 Baso # (Auto) 0.1 PT 13.1 H INR 1.2 APTT 30.2 D-Dimer, Quantitative 2384 H Sodium 136 Potassium 5.1 Chloride 99 Carbon Dioxide 24 Anion Gap 18 BUN 16 Creatinine 1.4 Est GFR ( Amer) > 60 Est GFR (Non-Af Amer) 50 POC Glucose (mg/dL) Random Glucose 259 H D Calcium 9.7 Total Bilirubin 0.5 AST 12 L ALT 7 L D Alkaline Phosphatase 104 Total Protein 8.4 H Albumin 4.1 Globulin 4.3 H Albumin/Globulin Ratio 1.0 04/03/19 04/03/19 04/03/19 07:51 11:00 16:29 WBC RBC Hgb Hct MCV MCH MCHC RDW Plt Count MPV Neut % (Auto) Lymph % (Auto) Kershaw % (Auto) Eos % (Auto) Baso % (Auto) Neut # (Auto) Lymph # (Auto) Kershaw # (Auto) Eos # (Auto) Baso # (Auto) PT INR APTT D-Dimer, Quantitative Sodium Potassium Chloride Carbon Dioxide Anion Gap BUN Creatinine Est GFR ( Amer) Est GFR (Non-Af Amer) POC Glucose (mg/dL) 273 H 412 H* 177 H Random Glucose Calcium Total Bilirubin AST ALT Alkaline Phosphatase Total Protein Albumin Globulin Albumin/Globulin Ratio Assessment & Plan - Assessment and Plan (Free Text) Plan: Left Lower Extremity Swelling CAD Vascular Surgery consulted, Dr. Norton * Duplex US * Arterial US * CT angio * KARMA/PVRs * Leg elevation and compression stockings CT angio 04/03: * CT angiogram abdomen/pelvis: * 1. There is moderate calcific and soft plaque throughout the abdominal aorta without significant stenosis or aneurysm. * 2. There is moderate stenosis of the right external iliac artery. There is moderate plaque in the right common iliac artery without significant stenosis. * 3. Left common iliac artery and external iliac artery have mild plaque with no stenosis.. * Right lower extremity CT angiogram: * 1. The common femoral artery is unremarkable. * 2. Moderate stenosis of the proximal profunda femoral artery. * 3. Moderate plaque in the SFA without significant stenosis. * 4. Popliteal artery is unremarkable. * 5. Runoff shows a mild stenosis of the proximal peroneal artery which is otherwise unremarkable. Anterior tibial artery is heavily calcified in the proximal segment and severely stenotic. Mid and distal anterior tibial artery is likely occluded. Posterior tibial artery is occluded or severely stenotic in the proximal mid segments. Distal reconstitution. * Left lower extremity CT angiogram: * 1. The common femoral artery, profunda femoral artery, superficial femoral artery are normal. * 2. Mild stenosis of popliteal artery * 3. Runoff shows a patent peroneal artery. The posterior tibial artery is severely stenotic or occluded in the proximal segment with distal reconstitution. Anterior tibial artery is mildly stenotic in the proximal segment then is severely stenotic or occluded in the mid and distal segment. * Nonvascular: * There is a large portacaval lymph node measuring 2.2 x 1.4 centimeter and a gastrohepatic lymph node measuring 1.4 centimeters. Pelvis/Femur X-rays show no acute fx f/u Duplex US, Arterial US and KARMA/PVRs Continue current medical management * Aspirin 81mg PO daily * Lovenox 60mg SC q12h * Crestor 10mg PO HS Case discussed with Dr. Wing Leblanc Maria C PGY2 <Benjamín Dimas - Last Filed: 04/03/19 22:43> Meds - Medications Medications: Current Medications Albuterol/Ipratropium (Duoneb 3 Mg/0.5 Mg (3 Ml) Ud) 3 ml INH RQ6 [facility] Aspirin (Ecotrin) 81 mg PO DAILY [facility] Last Admin: 04/03/19 10:44 Dose: 81 mg Enoxaparin Sodium (Lovenox) 60 mg SC Q12 [facility] Last Admin: 04/03/19 21:44 Dose: 60 mg Finasteride (Proscar) 5 mg PO DAILY [facility] Last Admin: 04/03/19 10:44 Dose: 5 mg Insulin Human Regular (Novolin R) 0 unit SC ACHS [facility]; Protocol Last Admin: 04/03/19 21:42 Dose: Not Given Metformin HCl (Glucophage) 500 mg PO BIDCC [facility] Last Admin: 04/03/19 17:33 Dose: 500 mg Oxycodone/Acetaminophen (Percocet 5/325 Mg Tab) 2 tab PO Q6H PRN PRN Reason: Pain, moderate (4-7) Stop: 04/05/19 19:17 Last Admin: 04/03/19 17:33 Dose: 2 tab Rosuvastatin Calcium (Crestor) 10 mg PO HS [facility] Last Admin: 04/03/19 21:41 Dose: 10 mg Results - Vital Signs Recent Vital Signs: Last Vital Signs Temp 98.2 F 04/03/19 15:52 Pulse 73 04/03/19 15:52 Resp 20 04/03/19 15:52 BP 129/77 04/03/19 15:52 Pulse Ox 97 04/03/19 15:52 - Labs Result Diagrams: 04/02/19 19:09 04/02/19 19:09 Labs: Laboratory Results - last 24 hr 04/03/19 04/03/19 04/03/19 07:51 11:00 16:29 POC Glucose (mg/dL) 273 H 412 H* 177 H 04/03/19 21:04 POC Glucose (mg/dL) 206 H Assessment & Plan - Assessment and Plan (Free Text) Plan: Patient seen examined and evaluated personally by me. Plan of care d/w the medical coding instructor and as documented
--- NOTE | 2019-04-03 21:13 | CP.PCM.PN ---
Subjective - Date & Time of Evaluation Date of Evaluation: 04/03/19 Time of Evaluation: 19:00 - Subjective Subjective: dict Objective - Vital Signs/Intake and Output Vital Signs (last 24 hours): Temp Pulse Resp BP Pulse Ox 98.2 F 73 20 129/77 97 04/03/19 15:52 04/03/19 15:52 04/03/19 15:52 04/03/19 15:52 04/03/19 15:52 Intake and Output: 04/03/19 04/04/19 18:59 06:59 Intake Total 450 Balance 450 - Medications Medications: Current Medications Albuterol/Ipratropium (Duoneb 3 Mg/0.5 Mg (3 Ml) Ud) 3 ml INH RQ6 [facility] Aspirin (Ecotrin) 81 mg PO DAILY [facility] Last Admin: 04/03/19 10:44 Dose: 81 mg Enoxaparin Sodium (Lovenox) 60 mg SC Q12 [facility] Last Admin: 04/03/19 10:44 Dose: 60 mg Finasteride (Proscar) 5 mg PO DAILY [facility] Last Admin: 04/03/19 10:44 Dose: 5 mg Insulin Human Regular (Novolin R) 0 unit SC ACHS [facility]; Protocol Last Admin: 04/03/19 17:34 Dose: 2 units Metformin HCl (Glucophage) 500 mg PO BIDCC [facility] Last Admin: 04/03/19 17:33 Dose: 500 mg Oxycodone/Acetaminophen (Percocet 5/325 Mg Tab) 2 tab PO Q6H PRN PRN Reason: Pain, moderate (4-7) Stop: 04/05/19 19:17 Last Admin: 04/03/19 17:33 Dose: 2 tab Rosuvastatin Calcium (Crestor) 10 mg PO HS [facility] Last Admin: 04/02/19 21:49 Dose: 10 mg - Labs Labs: 04/02/19 19:09 04/02/19 19:09 PT 13.1 SECONDS (9.7-12.2) H 04/02/19 19:09 INR 1.2 04/02/19 19:09 APTT 30.2 SECONDS (21-34) 04/02/19 19:09
[2019-04-03] MEDS: Albuterol-Ipratrop 3 mg / 0.5 (3 ml) UD INH SCH (22:48)
[2019-04-04] MEDS: Albuterol-Ipratrop 3 mg / 0.5 (3 ml) UD INH SCH ×4 (01:28→20:50)
--- NOTE | 2019-04-04 05:36 | PN ---
DATE: 04/04/2019 SUBJECTIVE: The patient still has left calf pain and his venous Doppler is positive for DVT. He is afebrile. PHYSICAL EXAMINATION: VITAL SIGNS: Blood pressure 131/77, pulse 89, respiratory rate 20, and temperature 98.8. LUNGS: Decreased air entry. Positive rhonchi. CARDIOVASCULAR SYSTEM: S1 and S2. Regular. ABDOMEN: Soft. The patient's sugars have been high. The patient underwent a low-dose CT of the lungs because of longstanding history of cigarette smoking and low-dose CT of the lungs is negative for any cancer. The patient's venous Doppler is positive. The patient has abdominal angiogram. The patient has several lymph nodes and the patient has peripheral arterial disease. The patient will be on medical management. Monitor the patient. Samm Banda MD
--- NOTE | 2019-04-04 06:51 | HP ---
CHIEF COMPLAINT: Left calf pain. HISTORY OF PRESENT ILLNESS: This is a 73-year-old white male well known to me with history of chronic heavy smoker, hypertension, hyperlipidemia, type 2 diabetes who is noncompliant with his diet, medication and followup. The patient also drinks and the patient had left ear surgery and since then he has been sleeping in the couch and about three days ago, he developed left calf pain and swelling. Difficulty walking. Unable to do weightbearing and the patient had pain in the calf. The patient had excessive shortness of breath. No chest pain. He has generalized weakness and his feet are cold to touch. The patient has difficulty walking. When he walks he gets pain in the calves which is relieved by rest. He gets cough and he gets wheezing. He has no nausea, vomiting, or diarrhea. He denies any polyuria, polydipsia, or polyphagia. He denies any history of hematuria or pyuria. He denies any sneezing, itchy eyes, itchy nose. He has chronic cough. No sputum production. The patient denies any history of dizziness, vertigo, loss of consciousness. He denies any history of trauma or fall. He denies any sneezing. PAST MEDICAL HISTORY: Type 2 diabetes, hypertension, hyperlipidemia, CVA, BPH, PAD. SOCIAL HISTORY: He smokes. He drinks. FAMILY HISTORY: Negative for premature coronary artery disease. CURRENT MEDICATIONS: None. PHYSICAL EXAMINATION" GENERAL: An elderly male, in no distress, complaining of calf pain. VITAL SIGNS: Blood pressure 158/76, pulse 91, respiratory rate 18, and temperature 98. SKIN: The patient has chronic changes in the leg. The patient does not have ulcer, but the patient has erythematous bilateral toes, all five toes in right and left foot. HEENT: Atraumatic and normocephalic. Negative pallor. Negative jaundice. Extraocular movements are intact. NECK: Supple. No JVD. No lymph node. No thyromegaly. No carotid bruits. CHEST : Chest wall, bilateral symmetrical expansion. No tenderness. No deformity. LUNGS: Bilateral scattered rhonchi. Decreased air entry. CARDIOVASCULAR SYSTEM: PMI not localized. S1, S2 plus. S3 positive. ABDOMEN: Soft and nontender. Bowel sounds are positive. RECTAL: Enlarged prostate. EXTREMITIES: There is left calf swelling and the patient has absent dorsalis pedis and posterior tibial artery pulses. The patient has ice cold feet with poor capillary refill. CENTRAL NERVOUS SYSTEM: Awake, alert, and oriented x3. Cranial nerves II through XII are normal. Power 5/5 x4. Plantars are downgoing. ASSESSMENT: 1. Deep venous thrombosis, left lower extremity, needs to be ruled out. 2. Peripheral artery disease, rule out coronary artery disease. 3. Type 2 diabetes, poorly controlled. 4. Hypertension, poorly controlled. 5. Rule out chronic obstructive pulmonary disease. PLAN: Admit. Detailed orders are written. Seen and examined. Samm Banda MD
[2019-04-04] MEDS: (Novolin R) Insulin Human Regular 100 units/ml vial SC SCH ×4 (08:30→22:00)
[2019-04-04] MEDS: Oxycodone/Acetaminophen 5/325 mg Tab PO PRN ×3 (08:33→21:48)
[2019-04-04] MEDS: Enoxaparin 60 mg Syringe SC SCH (11:00)
[2019-04-04 11:58] LABS: BASO # 0.1 K/uL (0.0-0.2); BASO % 0.6 % (0.0-2.0); EOS # 0.2 K/uL (0.0-0.7); EOS % 2.4 % (0.0-4.0); HEMOGLOBIN 12.4 g/dL (12.0-18.0); LYMPH # 1.1 K/uL (1.0-4.3); LYMPH % 11.7 % (20.0-40.0); MEAN CELL VOLUME 86.9 fL (80.0-94.0); MEAN CORPUSCULAR HEMOGLOBIN 30.1 pg (27.0-31.0); MEAN CORPUSCULAR HGB CONC 34.6 g/dL (33.0-37.0); MEAN PLATELET VOLUME 8.4 fL (7.2-11.7); MONO # 0.7 K/uL (0.0-0.8); MONO % 7.4 % (0.0-10.0); NEUT # 7.3 K/uL (1.8-7.0); NEUT % 77.9 % (50.0-75.0); NRBC % 0.1 % (0.0-2.0); RBC 4.11 Mil/uL (4.40-5.90); RED CELL DISTRIBUTION WIDTH 14.3 % (11.5-14.5); WHITE BLOOD COUNT 9.4 K/uL (4.8-10.8)
[2019-04-04 12:14] LABS: BLOOD UREA NITROGEN 14 mg/dL (9-20); GFR NON-AFRICAN AMERICAN 50
--- NOTE | 2019-04-04 12:56 | VASCLAB ---
Date of service: 04/03/2019 PROCEDURE: Lower Extremity Venous Duplex Exam. HISTORY: dvt PRIORS: None. TECHNIQUE: Bilateral common femoral, femoral, popliteal and posterior tibial, peroneal and great saphenous veins were evaluated. Flow was assessed with color Doppler, compressibility, assessment of phasic flow and augmentation response. Report prepared by FISH Curtis, RVT FINDINGS: RIGHT: 1. Common Femoral Vein: 1.1. Compressibility - Fully compressible: Thrombus - None : Flow - Phasic: Augmentation -Normal: Reflux - None. 2. Femoral Vein: 2.1. Compressibility - Fully compressible: Thrombus - None : Flow - Phasic: Augmentation -Normal: Reflux - None. 3. Popliteal Vein: 3.1. Compressibility - Fully compressible: Thrombus - None : Flow - Phasic: Augmentation -Normal: Reflux - None. 4. Posterior Tibial Vein: 4.1. Compressibility - Fully compressible: Thrombus - None: Flow - Phasic: Augmentation -Normal: Reflux - None. 5. Peroneal Vein: 5.1. Compressibility - Fully compressible: Thrombus - None: Flow - Phasic: Augmentation -Normal: Reflux - None. 6. Great Saphenous Vein: 6.1. Compressibility - Fully compressible: Thrombus - None: Flow - Phasic: Augmentation - Normal: Reflux - None. LEFT: 1. Common Femoral Vein: 1.1. Compressibility - Partial: Thrombus - Acute: Flow - Absent : Augmentation - None: Reflux - None. 2. Femoral Vein: 2.1. Compressibility - Partial: Thrombus - Acute: Flow - Absent : Augmentation - None: Reflux - None. 3. Popliteal Vein: 3.1. Compressibility - Partial: Thrombus - Acute : Flow - Absent : Augmentation - None: Reflux - None. 4. Posterior Tibial Vein: 4.1. Compressibility - Partial: Thrombus - Acute: Flow - Absent : Augmentation - None: Reflux - None. 5. Peroneal Vein: 5.1. Compressibility - Partial: Thrombus - Acute: Flow - Absent : Augmentation - None: Reflux - None. 6. Great Saphenous Vein: 6.1. Compressibility - Fully compressible: Thrombus - None: Flow - Phasic: Augmentation - Normal: Reflux - None. OTHER FINDINGS: BRI Ochoa notified about findings. IMPRESSION: Right: No evidence of deep or superficial vein thrombosis of the right lower extremity. Normal valve function noted of the right side. Left: Acute thrombosis of the left common femoral, femoral, popliteal, posterior tibial and peroneal veins with severe reduction of the venous return.
--- NOTE | 2019-04-04 13:14 | CP.PCM.PN ---
Subjective - Date & Time of Evaluation Date of Evaluation: 04/04/19 Time of Evaluation: 13:10 - Subjective Subjective: Surgery Progress Note for Dr. Norton 73M seen and evaluated at bedside this morning. Patient was going to work with physical therapy. Patient has no complaints at this time. Denies f/c, n/v/d, SOB, CP, or urinary symptoms. Objective - Vital Signs/Intake and Output Vital Signs (last 24 hours): Temp Pulse Resp BP Pulse Ox 98.7 F 90 20 134/77 98 04/04/19 08:00 04/04/19 08:00 04/04/19 08:00 04/04/19 08:00 04/04/19 08:00 Intake and Output: 04/04/19 04/04/19 06:59 18:59 Intake Total 860 Output Total 500 Balance 360 - Medications Medications: Current Medications Albuterol/Ipratropium (Duoneb 3 Mg/0.5 Mg (3 Ml) Ud) 3 ml INH RQ6 [facility] Last Admin: 04/04/19 08:36 Dose: Not Given Aspirin (Ecotrin) 81 mg PO DAILY [facility] Last Admin: 04/04/19 11:00 Dose: 81 mg Enoxaparin Sodium (Lovenox) 60 mg SC Q12 [facility] Last Admin: 04/04/19 11:00 Dose: 60 mg Finasteride (Proscar) 5 mg PO DAILY [facility] Last Admin: 04/04/19 11:00 Dose: 5 mg Insulin Human Regular (Novolin R) 0 unit SC [facility]; Protocol Last Admin: 04/04/19 12:30 Dose: 3 units Metformin HCl (Glucophage) 500 mg PO BIDCC [facility] Last Admin: 04/04/19 08:33 Dose: 500 mg Oxycodone/Acetaminophen (Percocet 5/325 Mg Tab) 2 tab PO Q6H PRN PRN Reason: Pain, moderate (4-7) Stop: 04/05/19 19:17 Last Admin: 04/04/19 08:33 Dose: 2 tab Rosuvastatin Calcium (Crestor) 10 mg PO HS [facility] Last Admin: 04/03/19 21:41 Dose: 10 mg - Labs Labs: 04/04/19 11:37 04/04/19 11:37 PT 13.1 SECONDS (9.7-12.2) H 04/02/19 19:09 INR 1.2 04/02/19 19:09 APTT 30.2 SECONDS (21-34) 04/02/19 19:09 - Constitutional Appears: Well, Non-toxic, No Acute Distress - Head Exam Head Exam: ATRAUMATIC, NORMAL INSPECTION, NORMOCEPHALIC - Eye Exam Eye Exam: EOMI Pupil Exam: PERRL - ENT Exam ENT Exam: Mucous Membranes Moist - Respiratory Exam Respiratory Exam: NORMAL BREATHING PATTERN. absent: Decreased Breath Sounds, Wheezes, Respiratory Distress - Cardiovascular Exam Cardiovascular Exam: absent: Tachycardia, Murmur - GI/Abdominal Exam GI & Abdominal Exam: Soft, Normal Bowel Sounds. absent: Tenderness - Extremities Exam Extremities Exam: Pedal Edema. absent: Calf Tenderness Additional comments: Left lower extremity swelling palpable DP/PT pulses bilaterally - Neurological Exam Neurological Exam: Alert, Awake, Oriented x3 - Psychiatric Exam Psychiatric exam: Normal Affect, Normal Mood - Skin Skin Exam: Dry, Intact, Normal Color, Warm Assessment and Plan - Assessment and Plan (Free Text) Assessment: 73M w/ extensive acute thrombosis of left lower extremity, seen on US Plan: F/u CTAP w/ IV contrast, venous phase to assess proximal extent of thrombosis Recommend full dose anticoagulation with Heparin or Lovenox D/w Dr. Errol Mednia PGY1
[2019-04-04] MEDS ORDERED: Enoxaparin 80 mg Syringe SC SCH (13:21)
--- NOTE | 2019-04-04 13:40 | CP.PCM.PN ---
Subjective - Date & Time of Evaluation Date of Evaluation: 04/04/19 Time of Evaluation: 12:00 - Subjective Subjective: Patient seen and examined Sitting comfortably no acute distress Being treated for left leg DVT CAT scan of the chest reviewed Denies cough, denies fever chills, denies chest pain Objective - Vital Signs/Intake and Output Vital Signs (last 24 hours): Temp Pulse Resp BP Pulse Ox 98.7 F 90 20 134/77 98 04/04/19 08:00 04/04/19 08:00 04/04/19 08:00 04/04/19 08:00 04/04/19 08:00 Intake and Output: 04/04/19 04/04/19 06:59 18:59 Intake Total 860 Output Total 500 Balance 360 - Medications Medications: Current Medications Albuterol/Ipratropium (Duoneb 3 Mg/0.5 Mg (3 Ml) Ud) 3 ml INH RQ6 [facility] Last Admin: 04/04/19 08:36 Dose: Not Given Aspirin (Ecotrin) 81 mg PO DAILY [facility] Last Admin: 04/04/19 11:00 Dose: 81 mg Enoxaparin Sodium (Lovenox) 80 mg SC Q12 [facility] Finasteride (Proscar) 5 mg PO DAILY [facility] Last Admin: 04/04/19 11:00 Dose: 5 mg Insulin Human Regular (Novolin R) 0 unit SC [facility]; Protocol Last Admin: 04/04/19 12:30 Dose: 3 units Metformin HCl (Glucophage) 500 mg PO BIDCC [facility] Last Admin: 04/04/19 08:33 Dose: 500 mg Oxycodone/Acetaminophen (Percocet 5/325 Mg Tab) 2 tab PO Q6H PRN PRN Reason: Pain, moderate (4-7) Stop: 04/05/19 19:17 Last Admin: 04/04/19 08:33 Dose: 2 tab Rosuvastatin Calcium (Crestor) 10 mg PO HS [facility] Last Admin: 04/03/19 21:41 Dose: 10 mg - Labs Labs: 04/04/19 11:37 04/04/19 11:37 PT 13.1 SECONDS (9.7-12.2) H 04/02/19 19:09 INR 1.2 04/02/19 19:09 APTT 30.2 SECONDS (21-34) 04/02/19 19:09 - Head Exam Head Exam: ATRAUMATIC, NORMOCEPHALIC - Eye Exam Eye Exam: Normal appearance - ENT Exam ENT Exam: Mucous Membranes Moist - Neck Exam Neck Exam: Normal Inspection - Respiratory Exam Respiratory Exam: Clear to Ausculation Bilateral - Cardiovascular Exam Cardiovascular Exam: REGULAR RHYTHM - GI/Abdominal Exam GI & Abdominal Exam: Soft, Normal Bowel Sounds - Extremities Exam Extremities Exam: Normal Inspection Assessment and Plan (1) COPD (chronic obstructive pulmonary disease) Assessment & Plan: Continue with the nebulizer treatment Status: Acute (2) Smoking addiction Assessment & Plan: CAT scan of the chest negative for lung nodule Repeat low-dose CT chest in 1 year Status: Acute
--- NOTE | 2019-04-04 13:52 | CP.PCM.PN ---
<Benji Lombardi - Last Filed: 04/04/19 16:28> Subjective - Date & Time of Evaluation Date of Evaluation: 04/04/19 Time of Evaluation: 10:00 - Subjective Subjective: PGY2 Cardiology Consult Note for Dr. Dimas Patient seen and examined this morning at bedside. No acute events overnight. Patient is resting comfortably in bed. He is still experiencing some pain in his left leg but is otherwise feeling well. Denies chest pain, shortness of breath, lightheadedness or dizziness. Objective - Vital Signs/Intake and Output Vital Signs (last 24 hours): Temp Pulse Resp BP Pulse Ox 98.7 F 90 20 134/77 98 04/04/19 08:00 04/04/19 08:00 04/04/19 08:00 04/04/19 08:00 04/04/19 08:00 Intake and Output: 04/04/19 04/04/19 06:59 18:59 Intake Total 860 Output Total 500 Balance 360 - Medications Medications: Current Medications Albuterol/Ipratropium (Duoneb 3 Mg/0.5 Mg (3 Ml) Ud) 3 ml INH RQ6 [facility] Last Admin: 04/04/19 08:36 Dose: Not Given Aspirin (Ecotrin) 81 mg PO DAILY [facility] Last Admin: 04/04/19 11:00 Dose: 81 mg Enoxaparin Sodium (Lovenox) 80 mg SC Q12 [facility] Finasteride (Proscar) 5 mg PO DAILY [facility] Last Admin: 04/04/19 11:00 Dose: 5 mg Insulin Human Regular (Novolin R) 0 unit SC [facility]S [facility]; Protocol Last Admin: 04/04/19 12:30 Dose: 3 units Metformin HCl (Glucophage) 500 mg PO BIDCC [facility] Last Admin: 04/04/19 08:33 Dose: 500 mg Oxycodone/Acetaminophen (Percocet 5/325 Mg Tab) 2 tab PO Q6H PRN PRN Reason: Pain, moderate (4-7) Stop: 04/05/19 19:17 Last Admin: 04/04/19 08:33 Dose: 2 tab Rosuvastatin Calcium (Crestor) 10 mg PO HS [facility] Last Admin: 04/03/19 21:41 Dose: 10 mg - Labs Labs: 04/04/19 11:37 04/04/19 11:37 PT 13.1 SECONDS (9.7-12.2) H 04/02/19 19:09 INR 1.2 04/02/19 19:09 APTT 30.2 SECONDS (21-34) 04/02/19 19:09 - Additional Findings Additional findings: - Constitutional Appears: Non-toxic, No Acute Distress - Head Exam Head Exam: ATRAUMATIC, NORMOCEPHALIC - Eye Exam Eye Exam: Normal appearance - ENT Exam ENT Exam: Mucous Membranes Moist - Neck Exam Neck exam: Negative for: Lymphadenopathy, Thyromegaly - Respiratory Exam Respiratory Exam: Clear to Auscultation Bilateral, NORMAL BREATHING PATTERN. a bsent: Accessory Muscle Use, Rales, Rhonchi, Wheezes, Respiratory Distress - Cardiovascular Exam Cardiovascular Exam: REGULAR RHYTHM, +S1 - GI/Abdominal Exam GI & Abdominal Exam: Normal Bowel Sounds, Soft. absent: Distended, Firm, Guarding, Tenderness - Extremities Exam Extremities exam: Positive for: calf tenderness (left calf), pedal edema (1+ pitting b/l (left > right)), pedal pulses present - Neurological Exam Neurological exam: Alert - Psychiatric Exam Psychiatric exam: Normal Affect, Normal Mood - Skin Skin Exam: Dry, Warm Assessment and Plan - Assessment and Plan (Free Text) Plan: DVT - Left Lower Extremity CAD Vascular Surgery consulted, Dr. Norton * f/u CTAP w/ IV contrast, venous phase to assess proximal extent of thrombosis * increased lovenox to 80mg sc q12h CT angio 04/03: * CT angiogram abdomen/pelvis: * 1. There is moderate calcific and soft plaque throughout the abdominal aorta without significant stenosis or aneurysm. * 2. There is moderate stenosis of the right external iliac artery. There is moderate plaque in the right common iliac artery without significant stenosis. * 3. Left common iliac artery and external iliac artery have mild plaque with no stenosis.. * Right lower extremity CT angiogram: * 1. The common femoral artery is unremarkable. * 2. Moderate stenosis of the proximal profunda femoral artery. * 3. Moderate plaque in the SFA without significant stenosis. * 4. Popliteal artery is unremarkable. * 5. Runoff shows a mild stenosis of the proximal peroneal artery which is otherwise unremarkable. Anterior tibial artery is heavily calcified in the proximal segment and severely stenotic. Mid and distal anterior tibial artery is likely occluded. Posterior tibial artery is occluded or severely stenotic in the proximal mid segments. Distal reconstitution. * Left lower extremity CT angiogram: * 1. The common femoral artery, profunda femoral artery, superficial femoral artery are normal. * 2. Mild stenosis of popliteal artery * 3. Runoff shows a patent peroneal artery. The posterior tibial artery is severely stenotic or occluded in the proximal segment with distal reconstitution. Anterior tibial artery is mildly stenotic in the proximal segment then is severely stenotic or occluded in the mid and distal segment. * Nonvascular: * There is a large portacaval lymph node measuring 2.2 x 1.4 centimeter and a gastrohepatic lymph node measuring 1.4 centimeters. Pelvis/Femur X-rays show no acute fx LE Duplex US 04/02/19: * Left: acute thrombosis of the left common femoral, femoral, popliteal, posterior tibial and peroneal veins with severe reduction of the venous return. f/u CTAP w/ IV contrast Continue current medical management * Aspirin 81mg PO daily * Lovenox 80mg SC q12h * Crestor 10mg PO HS Case discussed with Dr. Wing Lombardi PGY2 <Benjamín Dimas - Last Filed: 04/04/19 22:33> Objective - Vital Signs/Intake and Output Vital Signs (last 24 hours): Temp Pulse Resp BP Pulse Ox 98 F 69 20 147/71 98 04/04/19 16:01 04/04/19 16:01 04/04/19 16:01 04/04/19 16:01 04/04/19 16:01 Intake and Output: 04/04/19 04/05/19 18:59 06:59 Intake Total 480 Balance 480 - Medications Medications: Current Medications Albuterol/Ipratropium (Duoneb 3 Mg/0.5 Mg (3 Ml) Ud) 3 ml INH RQ6 [facility] Last Admin: 04/04/19 13:57 Dose: Not Given Aspirin (Ecotrin) 81 mg PO DAILY [facility] Last Admin: 04/04/19 11:00 Dose: 81 mg Enoxaparin Sodium (Lovenox) 80 mg SC Q12 [facility] Last Admin: 04/04/19 21:48 Dose: 80 mg Finasteride (Proscar) 5 mg PO DAILY [facility] Last Admin: 04/04/19 11:00 Dose: 5 mg Insulin Human Regular (Novolin R) 0 unit SC [facility]; Protocol Last Admin: 04/04/19 22:00 Dose: Not Given Metformin HCl (Glucophage) 500 mg PO BIDCC [facility] Last Admin: 04/04/19 17:49 Dose: Not Given Oxycodone/Acetaminophen (Percocet 5/325 Mg Tab) 2 tab PO Q6H PRN PRN Reason: Pain, moderate (4-7) Stop: 04/05/19 19:17 Last Admin: 04/04/19 21:48 Dose: 2 tab Pneumococcal Polyvalent Vaccine (Pneumovax 23 Vaccine) 0.5 ml IM .ONCE ONE Stop: 04/05/19 10:01 Rosuvastatin Calcium (Crestor) 10 mg PO HS [facility] Last Admin: 04/04/19 21:48 Dose: 10 mg - Labs Labs: 04/04/19 11:37 04/04/19 11:37 PT 13.1 SECONDS (9.7-12.2) H 04/02/19 19:09 INR 1.2 04/02/19 19:09 APTT 30.2 SECONDS (21-34) 04/02/19 19:09 Assessment and Plan - Assessment and Plan (Free Text) Plan: Patient seen, examined and evaluated personally by me. Plan of care d/w the medical case worker and as documented
[2019-04-04] MEDS ORDERED: Iodixanol 320 MG/ML 100 ML BOTTLE IV ONE (14:10)
--- NOTE | 2019-04-04 15:47 | CT ---
Date of service: 04/04/2019 PROCEDURE: CT Abdomen and Pelvis with contrast HISTORY: VENOUS PHASE COMPARISON: CT angiogram abdomen pelvis and lower extremities and bilateral lower extremity venous ultrasound 04/03/2019. TECHNIQUE: Following the intravenous administration of iodinated contrast material, a CT examination of the abdomen and pelvis was performed from the domes of the diaphragms to the symphysis pubis with reformatted datasets provided in axial, sagittal and coronal planes. Oral contrast was not administered as per referring physician request. Contrast dose: Visipaque 320, 100 cc Radiation dose: Total exam DLP = 1100.74 mGy-cm. This CT exam was performed using one or more of the following dose reduction techniques: Automated exposure control, adjustment of the mA and/or kV according to patient size, and/or use of iterative reconstruction technique. FINDINGS: LOWER THORAX: Borderline cardiomegaly. Trace peripheral fibrosis reiterated bilateral pulmonary bases. Limited bilateral basilar dependent atelectasis identified. No definite mass, pleural or pericardial effusion identified. LIVER: Unremarkable. No gross lesion or ductal dilatation. GALLBLADDER AND BILE DUCTS: Vicarious excretion of iodinated contrast material identified in the gallbladder dependent lumen. Otherwise unremarkable. PANCREAS: Unremarkable. No gross lesion or ductal dilatation. SPLEEN: Unremarkable. ADRENALS: Unremarkable. No mass. KIDNEYS AND URETERS: Numerous tiny lucency too small to characterize. No obstructive uropathy or gross solid mass. Infrequent intrarenal calculi remain nonobstructive bilaterally. VASCULATURE: Nonaneurysmal abdominal aortic calcific atherosclerotic changes are identified. BOWEL: Unremarkable. No obstruction. No gross mural thickening. APPENDIX: Normal appendix. PERITONEUM: Unremarkable. No free fluid. No free air. LYMPH NODES: Unremarkable. No enlarged lymph nodes. BLADDER: Unremarkable. REPRODUCTIVE: Enlarged prostate gland reiterated. BONES: Minimal grade 1 spondylolisthesis L4 anterior to L5 on a degenerative basis. No spondylolysis. OTHER FINDINGS: Small lucency is suggested at the central portion of the left common femoral vein suspicious for deep venous thrombosis. The lack of visualization of additional thrombi bilaterally or in the IVC/iliac venous system does not completely exclude the presence in this exam given mild enhancement. IMPRESSION: 1. Defect within the lumen of the left common femoral vein is suggestive of the volar most which concordant with left lower extremity venous Doppler ultrasound 04/03/2019 demonstrating occlusive thrombosis. 2. Vicarious excretion of iodinated contrast material within the gallbladder. 3. Reiterated numerous tiny renal lucencies at the bilateral kidneys without obstructive uropathy bilaterally. Intrarenal calculi identified at the bilateral kidneys. 4. Limited grade 1 spondylolisthesis L4-5 again evident as well as enlarged prostate gland.
--- NOTE | 2019-04-04 23:19 | CP.PCM.PN ---
Subjective - Date & Time of Evaluation Date of Evaluation: 04/04/19 Time of Evaluation: 07:40 - Subjective Subjective: dict Objective - Vital Signs/Intake and Output Vital Signs (last 24 hours): Temp Pulse Resp BP Pulse Ox 98 F 69 20 147/71 98 04/04/19 16:01 04/04/19 16:01 04/04/19 16:01 04/04/19 16:01 04/04/19 16:01 Intake and Output: 04/04/19 04/05/19 18:59 06:59 Intake Total 480 Balance 480 - Medications Medications: Current Medications Albuterol/Ipratropium (Duoneb 3 Mg/0.5 Mg (3 Ml) Ud) 3 ml INH RQ6 [facility] Last Admin: 04/04/19 13:57 Dose: Not Given Aspirin (Ecotrin) 81 mg PO DAILY [facility] Last Admin: 04/04/19 11:00 Dose: 81 mg Enoxaparin Sodium (Lovenox) 80 mg SC Q12 [facility] Last Admin: 04/04/19 21:48 Dose: 80 mg Finasteride (Proscar) 5 mg PO DAILY [facility] Last Admin: 04/04/19 11:00 Dose: 5 mg Insulin Human Regular (Novolin R) 0 unit SC [facility]; Protocol Last Admin: 04/04/19 22:00 Dose: Not Given Metformin HCl (Glucophage) 500 mg PO BIDCC [facility] Last Admin: 04/04/19 17:49 Dose: Not Given Oxycodone/Acetaminophen (Percocet 5/325 Mg Tab) 2 tab PO Q6H PRN PRN Reason: Pain, moderate (4-7) Stop: 04/05/19 19:17 Last Admin: 04/04/19 21:48 Dose: 2 tab Pneumococcal Polyvalent Vaccine (Pneumovax 23 Vaccine) 0.5 ml IM .ONCE ONE Stop: 04/05/19 10:01 Rosuvastatin Calcium (Crestor) 10 mg PO [facility] Last Admin: 04/04/19 21:48 Dose: 10 mg - Labs Labs: 04/04/19 11:37 04/04/19 11:37 PT 13.1 SECONDS (9.7-12.2) H 04/02/19 19:09 INR 1.2 04/02/19 19:09 APTT 30.2 SECONDS (21-34) 04/02/19 19:09
[2019-04-05] MEDS: Albuterol-Ipratrop 3 mg / 0.5 (3 ml) UD INH SCH ×4 (01:32→20:50)
[2019-04-05] MEDS: Oxycodone/Acetaminophen 5/325 mg Tab PO PRN ×4 (04:33→22:30)
--- NOTE | 2019-04-05 04:33 | PN ---
DATE: 04/04/2019 SUBJECTIVE: The patient is feeling better. He is afebrile. No shortness of breath. He is on blood thinners. No nausea or vomiting. No chest pain. PHYSICAL EXAMINATION: VITAL SIGNS: Blood pressure 147/71, pulse 69, respiratory rate 20, temperature 98. LUNGS: Decreased air entry. Positive rhonchi. CARDIOVASCULAR SYSTEM: S1 and S2, regular. ABDOMEN: Soft and nontender. Bowel sounds are positive. CENTRAL NERVOUS SYSTEM: Awake, alert, and oriented x3. DIAGNOSTIC DATA: CT of the chest is negative for any tumor. ASSESSMENT: 1. Deep venous thrombosis of the left lower extremity. 2. Chronic obstructive pulmonary disease. 3. Hypertension. 4. Peripheral arterial disease. PLAN: The patient is for CT of abdomen and pelvis. CT of abdomen and pelvis was done as per Surgery recommendation and the patient was found to have deep venous thrombosis extending to left common femoral vein and the patient had possibility of stone in both kidneys and spondylolisthesis. Continue current medication. Monitor the patient. Samm Banda MD
[2019-04-05 07:20] LABS: HEMOGLOBIN 12.2 g/dL (12.0-18.0); MEAN CORPUSCULAR HEMOGLOBIN 29.5 pg (27.0-31.0); MEAN CORPUSCULAR HGB CONC 34.3 g/dL (33.0-37.0); MEAN PLATELET VOLUME 8.2 fL (7.2-11.7); RBC 4.16 Mil/uL (4.40-5.90); RED CELL DISTRIBUTION WIDTH 14.6 % (11.5-14.5); WHITE BLOOD COUNT 8.4 K/uL (4.8-10.8)
[2019-04-05 07:35] LABS: BLOOD UREA NITROGEN 12 mg/dL (9-20); CALCIUM 9.1 mg/dl (8.6-10.4); GFR NON-AFRICAN AMERICAN 60
--- NOTE | 2019-04-05 07:54 | CP.PCM.PN ---
Subjective - Date & Time of Evaluation Date of Evaluation: 04/05/19 Time of Evaluation: 07:53 - Subjective Subjective: discussed option of IVCF patient declined Objective - Vital Signs/Intake and Output Vital Signs (last 24 hours): Temp Pulse Resp BP Pulse Ox 98.9 F 70 20 118/72 98 04/04/19 23:21 04/04/19 23:21 04/04/19 23:21 04/04/19 23:21 04/04/19 23:21 Intake and Output: 04/05/19 04/05/19 06:59 18:59 Intake Total 640 Output Total 1250 Balance -610 - Medications Medications: Current Medications Albuterol/Ipratropium (Duoneb 3 Mg/0.5 Mg (3 Ml) Ud) 3 ml INH RQ6 [facility] Last Admin: 04/05/19 01:32 Dose: Not Given Aspirin (Ecotrin) 81 mg PO DAILY [facility] Last Admin: 04/04/19 11:00 Dose: 81 mg Enoxaparin Sodium (Lovenox) 80 mg SC Q12 [facility] Last Admin: 04/04/19 21:48 Dose: 80 mg Finasteride (Proscar) 5 mg PO DAILY [facility] Last Admin: 04/04/19 11:00 Dose: 5 mg Insulin Human Regular (Novolin R) 0 unit SC [facility]; Protocol Last Admin: 04/04/19 22:00 Dose: Not Given Metformin HCl (Glucophage) 500 mg PO BIDCC [facility] Last Admin: 04/04/19 17:49 Dose: Not Given Oxycodone/Acetaminophen (Percocet 5/325 Mg Tab) 2 tab PO Q6H PRN PRN Reason: Pain, moderate (4-7) Stop: 04/05/19 19:17 Last Admin: 04/05/19 04:33 Dose: 2 tab Pneumococcal Polyvalent Vaccine (Pneumovax 23 Vaccine) 0.5 ml IM .ONCE ONE Stop: 04/05/19 10:01 Rosuvastatin Calcium (Crestor) 10 mg PO HS [facility] Last Admin: 04/04/19 21:48 Dose: 10 mg - Labs Labs: 04/05/19 07:01 04/05/19 07:01 PT 13.1 SECONDS (9.7-12.2) H 04/02/19 19:09 INR 1.2 05/13/19 19:09 APTT 30.2 SECONDS (21-34) 04/02/19 19:09
[2019-04-05] MEDS: (Novolin R) Insulin Human Regular 100 units/ml vial SC SCH ×4 (07:57→21:37)
--- NOTE | 2019-04-05 08:13 | CP.PCM.PN ---
<Benji Lombardi - Last Filed: 04/05/19 18:27> Subjective - Date & Time of Evaluation Date of Evaluation: 04/05/19 Time of Evaluation: 08:10 - Subjective Subjective: PGY2 Cardiology Note for Dr. Dimas Patient seen and examined this morning at bedside. No acute events overnight. Patient was seen my surgery this morning for possible IVC filter placement, patient refused. He states that his fall 2.5 weeks a go was an accident as a result of a railing coming off the wall. He denies any other history of falls. He is other lin feeling well, denies any leg pain, chest pain, lightheadedness, dizziness or shortness of breath. Objective - Vital Signs/Intake and Output Vital Signs (last 24 hours): Temp Pulse Resp BP Pulse Ox 98.9 F 70 20 118/72 98 04/04/19 23:21 04/04/19 23:21 04/04/19 23:21 04/04/19 23:21 04/04/19 23:21 Intake and Output: 04/05/19 04/05/19 06:59 18:59 Intake Total 640 Output Total 1250 Balance -610 - Medications Medications: Current Medications Albuterol/Ipratropium (Duoneb 3 Mg/0.5 Mg (3 Ml) Ud) 3 ml INH RQ6 [facility] Last Admin: 04/05/19 01:32 Dose: Not Given Aspirin (Ecotrin) 81 mg PO DAILY [facility] Last Admin: 04/04/19 11:00 Dose: 81 mg Enoxaparin Sodium (Lovenox) 80 mg SC Q12 [facility] Last Admin: 04/04/19 21:48 Dose: 80 mg Finasteride (Proscar) 5 mg PO DAILY [facility] Last Admin: 04/04/19 11:00 Dose: 5 mg Insulin Human Regular (Novolin R) 0 unit SC [facility]; Protocol Last Admin: 04/05/19 07:57 Dose: Not Given Metformin HCl (Glucophage) 500 mg PO BIDCC [facility] Last Admin: 04/04/19 17:49 Dose: Not Given Oxycodone/Acetaminophen (Percocet 5/325 Mg Tab) 2 tab PO Q6H PRN PRN Reason: Pain, moderate (4-7) Stop: 04/05/19 19:17 Last Admin: 04/05/19 04:33 Dose: 2 tab Pneumococcal Polyvalent Vaccine (Pneumovax 23 Vaccine) 0.5 ml IM .ONCE ONE Stop: 04/05/19 10:01 Rosuvastatin Calcium (Crestor) 10 mg PO HS [facility] Last Admin: 04/04/19 21:48 Dose: 10 mg - Labs Labs: 04/05/19 07:01 04/05/19 07:01 PT 13.1 SECONDS (9.7-12.2) H 04/02/19 19:09 INR 1.2 04/02/19 19:09 APTT 30.2 SECONDS (21-34) 04/02/19 19:09 - Additional Findings Additional findings: - Constitutional Appears: Non-toxic, No Acute Distress - Head Exam Head Exam: ATRAUMATIC, NORMOCEPHALIC - Eye Exam Eye Exam: Normal appearance - ENT Exam ENT Exam: Mucous Membranes Moist - Neck Exam Neck exam: Negative for: Lymphadenopathy, Thyromegaly - Respiratory Exam Respiratory Exam: Clear to Auscultation Bilateral, NORMAL BREATHING PATTERN. absent: Accessory Muscle Use, Rales, Rhonchi, Wheezes, Respiratory Distress - Cardiovascular Exam Cardiovascular Exam: REGULAR RHYTHM, +S1 - GI/Abdominal Exam GI & Abdominal Exam: Normal Bowel Sounds, Soft. absent: Distended, Firm, Guarding, Tenderness - Extremities Exam Extremities exam: Positive for: pedal pulses present, pedal edema (up to ankle only). absent: calf tenderness - Neurological Exam Neurological exam: Alert - Psychiatric Exam Psychiatric exam: Normal Affect, Normal Mood - Skin Skin Exam: Dry, Warm Assessment and Plan - Assessment and Plan (Free Text) Plan: Discussion with patient resulted in refusal of IVC filter. Patient denies history of falling, reports that he has only fallen once, 2.5 weeks ago, after a railing on his wall at home became detached from the wall, resulting in his fall. Discussed the risks of falling while on blood thinners, including increased bleed and potential for brain bleed, herniation and possible . Patient again states that he does not fall. Per Physical Therapist Julisa, patient is unsteady with walker and needs at least 1 person assist for stability. Patient continues being high fall risk. DVT - Left Lower Extremity CAD Vascular Surgery consulted, Dr. Norton * discussed placement of IVC filter, patient refused CT angio 04/03: * CT angiogram abdomen/pelvis: * 1. There is moderate calcific and soft plaque throughout the abdominal aorta without significant stenosis or aneurysm. * 2. There is moderate stenosis of the right external iliac artery. There is moderate plaque in the right common iliac artery without significant stenosis. * 3. Left common iliac artery and external iliac artery have mild plaque with no stenosis.. * Right lower extremity CT angiogram: * 1. The common femoral artery is unremarkable. * 2. Moderate stenosis of the proximal profunda femoral artery. * 3. Moderate plaque in the SFA without significant stenosis. * 4. Popliteal artery is unremarkable. * 5. Runoff shows a mild stenosis of the proximal peroneal artery which is otherwise unremarkable. Anterior tibial artery is heavily calcified in the proximal segment and severely stenotic. Mid and distal anterior tibial artery is likely occluded. Posterior tibial artery is occluded or severely stenotic in the proximal mid segments. Distal reconstitution. * Left lower extremity CT angiogram: * 1. The common femoral artery, profunda femoral artery, superficial femoral artery are normal. * 2. Mild stenosis of popliteal artery * 3. Runoff shows a patent peroneal artery. The posterior tibial artery is severely stenotic or occluded in the proximal segment with distal reconstitution. Anterior tibial artery is mildly stenotic in the proximal segment then is severely stenotic or occluded in the mid and distal segment. * Nonvascular: * There is a large portacaval lymph node measuring 2.2 x 1.4 centimeter and a gastrohepatic lymph node measuring 1.4 centimeters. Pelvis/Femur X-rays show no acute fx LE Duplex US 04/02/19: * Left: acute thrombosis of the left common femoral, femoral, popliteal, pos terior tibial and peroneal veins with severe reduction of the venous return. CTAP w/ IV contrast 04/04/19: * 1. Defect within the lumen of the left common femoral vein is suggestive of the volar most which concordant with left lower extremity venous Doppler ultrasound 04/03/2019 demonstrating occlusive thrombosis. * 2. Vicarious excretion of iodinated contrast material within the gallbladder. * 3. Reiterated numerous tiny renal lucencies at the bilateral kidneys without obstructive uropathy bilaterally. Intrarenal calculi identified at the bilateral kidneys. * 4. Limited grade 1 spondylolisthesis L4-5 again evident as well as enlarged prostate gland. Continue current medical management * Aspirin 81mg PO daily * Lovenox 80mg SC q12h * Crestor 10mg PO HS Case discussed with Dr. Wing Lombardi PGY2 <Benajmín Dimas - Last Filed: 04/06/19 19:55> Objective - Vital Signs/Intake and Output Vital Signs (last 24 hours): Temp Pulse Resp BP Pulse Ox 98.5 F 75 20 133/79 96 04/06/19 08:00 04/06/19 08:00 04/06/19 08:00 04/06/19 08:00 04/06/19 08:00 Intake and Output: 04/06/19 04/07/19 18:59 06:59 Intake Total 700 Balance 700 - Labs Labs: 04/06/19 08:09 04/06/19 08:09 PT 13.1 SECONDS (9.7-12.2) H 04/02/19 19:09 INR 1.2 04/02/19 19:09 APTT 30.2 SECONDS (21-34) 04/02/19 19:09 Assessment and Plan - Assessment and Plan (Free Text) Plan: Patient seen, examined and evaluated personally by me. Plan of care d/w the medical transcription and as documented
[2019-04-05] MEDS ORDERED: Pneumococcal 23-Valent Vaccine IM ONE (10:00)
[2019-04-05] MEDS: Pantoprazole 40 mg EC Tab PO SCH (17:10)
--- NOTE | 2019-04-05 23:04 | CP.PCM.PN ---
Subjective - Date & Time of Evaluation Date of Evaluation: 04/05/19 Time of Evaluation: 07:00 - Subjective Subjective: dict Objective - Vital Signs/Intake and Output Vital Signs (last 24 hours): Temp Pulse Resp BP Pulse Ox 98.3 F 60 20 136/77 96 04/05/19 15:00 04/05/19 15:00 04/05/19 15:00 04/05/19 15:00 04/05/19 15:00 Intake and Output: 04/05/19 04/06/19 18:59 06:59 Intake Total 240 Balance 240 - Medications Medications: Current Medications Albuterol/Ipratropium (Duoneb 3 Mg/0.5 Mg (3 Ml) Ud) 3 ml INH RQ6 [facility] Last Admin: 04/05/19 20:50 Dose: Not Given Aspirin (Ecotrin) 81 mg PO DAILY [facility] Last Admin: 04/04/19 11:00 Dose: 81 mg Finasteride (Proscar) 5 mg PO DAILY [facility] Last Admin: 04/05/19 09:54 Dose: 5 mg Insulin Human Regular (Novolin R) 0 unit SC [facility]; Protocol Last Admin: 04/05/19 21:37 Dose: Not Given Metformin HCl (Glucophage) 500 mg PO BIDCC [facility] Last Admin: 04/05/19 17:16 Dose: 500 mg Nicotine (Nicoderm Cq) 1 patch TD DAILY [facility] Last Admin: 04/05/19 20:01 Dose: 1 patch Nicotine (Nicoderm Cq) 1 patch TD DAILY [facility] Oxycodone/Acetaminophen (Percocet 5/325 Mg Tab) 2 tab PO Q6H PRN PRN Reason: Pain, severe (8-10) Stop: 04/08/19 19:24 Last Admin: 04/05/19 22:30 Dose: 2 tab Pantoprazole Sodium (Protonix Ec Tab) 40 mg PO DAILY [facility] Last Admin: 04/05/19 17:10 Dose: 40 mg Rivaroxaban (Xarelto) 15 mg PO BID [facility] Last Admin: 04/05/19 17:11 Dose: Not Given Rosuvastatin Calcium (Crestor) 10 mg PO HS [facility] Last Admin: 04/05/19 22:30 Dose: 10 mg Tiotropium [place] (Spiriva) 18 mcg INH RQ24 [facility] - Labs Labs: 04/05/19 07:01 04/05/19 07:01 PT 13.1 SECONDS (9.7-12.2) H 04/02/19 19:09 INR 1.2 04/02/19 19:09 APTT 30.2 SECONDS (21-34) 04/02/19 19:09
[2019-04-06] MEDS: Albuterol-Ipratrop 3 mg / 0.5 (3 ml) UD INH SCH ×2 (01:42→08:47)
[2019-04-06] MEDS: Oxycodone/Acetaminophen 5/325 mg Tab PO PRN ×2 (04:31→13:46)
[2019-04-06] MEDS: (Novolin R) Insulin Human Regular 100 units/ml vial SC SCH ×2 (07:56→11:41)
[2019-04-06] MEDS ORDERED: Tiotropium 18 mcg Cap For Inhalation INH SCH (08:00)
[2019-04-06 08:13] VITALS: BP 133/79; PULSE 75; TEMP 98.5
[2019-04-06 08:24] LABS: BASO # 0.1 K/uL (0.0-0.2); BASO % 0.7 % (0.0-2.0); EOS # 0.3 K/uL (0.0-0.7); EOS % 3.5 % (0.0-4.0); HEMOGLOBIN 12.4 g/dL (12.0-18.0); LYMPH # 1.9 K/uL (1.0-4.3); MEAN CORPUSCULAR HEMOGLOBIN 29.9 pg (27.0-31.0); MEAN CORPUSCULAR HGB CONC 34.8 g/dL (33.0-37.0); MEAN PLATELET VOLUME 8.2 fL (7.2-11.7); MONO # 0.8 K/uL (0.0-0.8); MONO % 8.5 % (0.0-10.0); NEUT # 5.8 K/uL (1.8-7.0); NEUT % 65.3 % (50.0-75.0); RBC 4.15 Mil/uL (4.40-5.90); RED CELL DISTRIBUTION WIDTH 14.3 % (11.5-14.5); WHITE BLOOD COUNT 8.8 K/uL (4.8-10.8)
[2019-04-06 08:29] LABS: BLOOD UREA NITROGEN 12 mg/dL (9-20); CALCIUM 9.5 mg/dl (8.6-10.4); GFR NON-AFRICAN AMERICAN 54
[2019-04-06] MEDS: Pantoprazole 40 mg EC Tab PO SCH (09:48)
--- NOTE | 2019-04-06 17:31 | CP.PCM.PN ---
Subjective - Date & Time of Evaluation Date of Evaluation: 04/06/19 Time of Evaluation: 11:15 - Subjective Subjective: Patient seen today states feels better, denies any chest pain, sob, dizziness, a febrile vss and labs reviewed - stable started on xeralto for Left leg DVT Objective - Vital Signs/Intake and Output Vital Signs (last 24 hours): Temp Pulse Resp BP Pulse Ox 98.5 F 75 20 133/79 96 04/06/19 08:00 04/06/19 08:00 04/06/19 08:00 04/06/19 08:00 04/06/19 08:00 Intake and Output: 04/06/19 04/06/19 06:59 18:59 Intake Total 720 700 Output Total 1000 Balance -280 700 - Labs Labs: 04/06/19 08:09 04/06/19 08:09 PT 13.1 SECONDS (9.7-12.2) H 04/02/19 19:09 INR 1.2 04/02/19 19:09 APTT 30.2 SECONDS (21-34) 04/02/19 19:09 Assessment and Plan - Assessment and Plan (Free Text) Assessment: A/P 73 year old male presents to the ED for evaluation of left leg swelling for one week Duplex scan LE- + for acute DVT OF left lower extremity Patient refused IVC filter started on lovonox and switched to xeralto [facility] and patient in agreement D/w Dr. Banda ,cleared for discharge to [facility] today Discharge plan discussed with patient , who understands and agrees with plan
--- NOTE | 2019-04-07 00:02 | CP.PCM.DIS ---
Provider - Provider Date of Admission: 04/03/19 15:56 Attending physician: Samm Banda MD Consults: 04/03/19 03:51 General Surgery Consult Routine Comment: Consulting Provider: Connor Norton Jr. Consulting Physician: Connor Norton Jr. Reason for Consult: pad 04/03/19 04:02 Cardiology Consult Routine Comment: Consulting Provider: Benjamín Dimas Consulting Physician: Benjamín Dimas Reason for Consult: pad,cad 04/03/19 12:36 Pulmonology Consult Routine Comment: Consulting Provider: Blair Andersen Consulting Physician: Blair Andersen Reason for Consult: dvt Time Spent in preparation of Discharge (in minutes): 30 Hospital Course - Lab Results Lab Results: Most Recent Lab Values WBC 8.8 K/uL (4.8-10.8) 04/06/19 08:09 RBC 4.15 Mil/uL (4.40-5.90) L 04/06/19 08:09 Hgb 12.4 g/dL (12.0-18.0) 04/06/19 08:09 Hct 35.7 % (35.0-51.0) 04/06/19 08:09 MCV 86.0 fL (80.0-94.0) 04/06/19 08:09 MCH 29.9 pg (27.0-31.0) 04/06/19 08:09 MCHC 34.8 g/dL (33.0-37.0) 04/06/19 08:09 RDW 14.3 % (11.5-14.5) 04/06/19 08:09 Plt Count 413 K/uL (130-400) H 04/06/19 08:09 MPV 8.2 fL (7.2-11.7) 04/06/19 08:09 Neut % (Auto) 65.3 % (50.0-75.0) 04/06/19 08:09 Lymph % (Auto) 22.0 % (20.0-40.0) 04/06/19 08:09 [place] % (Auto) 8.5 % (0.0-10.0) 04/06/19 08:09 Eos % (Auto) 3.5 % (0.0-4.0) 04/06/19 08:09 Baso % (Auto) 0.7 % (0.0-2.0) 04/06/19 08:09 Neut # (Auto) 5.8 K/uL (1.8-7.0) 04/06/19 08:09 Lymph # (Auto) 1.9 K/uL (1.0-4.3) 04/06/19 08:09 [place] # (Auto) 0.8 K/uL (0.0-0.8) 04/06/19 08:09 Eos # (Auto) 0.3 K/uL (0.0-0.7) 04/06/19 08:09 Baso # (Auto) 0.1 K/uL (0.0-0.2) 04/06/19 08:09 PT 13.1 SECONDS (9.7-12.2) H 04/02/19 19:09 INR 1.2 04/02/19 19:09 APTT 30.2 SECONDS (21-34) 04/02/19 19:09 D-Dimer, Quantitative 2384 ng/mlDDU (0-243) H 04/02/19 19:09 Sodium 133 mmol/L (132-148) 04/06/19 08:09 Potassium 4.8 mmol/L (3.6-5.2) 04/06/19 08:09 Chloride 98 mmol/L (98-107) 04/06/19 08:09 Carbon Dioxide 28 mmol/L (22-30) 04/06/19 08:09 Anion Gap 12 (10-20) 04/06/19 08:09 BUN 12 mg/dL (9-20) 04/06/19 08:09 Creatinine 1.3 mg/dL (0.8-1.5) 04/06/19 08:09 Est GFR ( Amer) > 60 04/06/19 08:09 Est GFR (Non-Af Amer) 54 04/06/19 08:09 POC Glucose (mg/dL) 271 mg/dL (65-110) H 04/06/19 11:05 Random Glucose 164 mg/dL (75-110) H 04/06/19 08:09 Calcium 9.5 mg/dl (8.6-10.4) 04/06/19 08:09 Total Bilirubin 0.5 mg/dL (0.2-1.3) 04/02/19 19:09 AST 12 U/L (17-59) L 04/02/19 19:09 ALT 7 U/L (21-72) L D 04/02/19 19:09 Alkaline Phosphatase 104 U/L (38-126) 04/02/19 19:09 Total Protein 8.4 g/dL (6.3-8.3) H 04/02/19 19:09 Albumin 4.1 g/dL (3.5-5.0) 04/02/19 19:09 Globulin 4.3 gm/dL (2.2-3.9) H 04/02/19 19:09 Albumin/Globulin Ratio 1.0 (1.0-2.1) 04/02/19 19:09 Blood Type B NEGATIVE 04/05/19 07:01 Antibody Screen Negative 04/05/19 07:01 Discharge Exam - Head Exam Head Exam: ATRAUMATIC, NORMOCEPHALIC Discharge Plan - Follow Up Plan Condition: GOOD Disposition: OTHER INSTITUTION Instructions: Quitting Smoking, Exacerbation of COPD (DC) Additional Instructions: Patient needs to continue xeralto after discharge from [facility] ( for DVT) Referrals: Samm Banda MD [Staff Provider] -
--- NOTE | 2019-04-07 03:07 | DS ---
DISCHARGE DIAGNOSES: 1. Deep venous thrombosis of the left lower extremity. 2. Peripheral arterial disease. 3. Chronic obstructive pulmonary disease. 4. Diabetes. 5. Hypertension. 6. Benign prostatic hypertrophy. HOSPITAL COURSE: This is a 73-year-old white male with history of diabetes, hypertension, BPH, osteoarthritis, back pain, and alcoholism, who came in because of left calf pain, swelling along with that he had cold feet with intermittent claudication. The patient was admitted to the floor, started on IV fluids, Accu-Cheks, sliding scale, and heparin and later on switched over to Xarelto and the patient felt better and the patient's condition is stable for discharge. During the course of hospitalization, he was seen by Pulmonary, Cardiology. He is feeling better. CONDITION UPON DISCHARGE: Stable. PHYSICAL EXAMINATION: LUNGS: Decreased air entry. CARDIOVASCULAR SYSTEM: S1 and S2 regular. ABDOMEN: Soft. ASSESSMENT: Peripheral arterial disease, deep venous thrombosis, type 2 diabetes, and chronic obstructive pulmonary disease. PLAN: Discharge the patient. Samm Banda MD
--- NOTE | 2019-04-07 08:04 | PN ---
DATE: 04/05/2019 SUBJECTIVE: The patient is still feeling bilateral leg pain with left calf pain. Less cough. Less wheezing. No chest pain. No nausea or vomiting. No dizziness. PHYSICAL EXAMINATION: VITAL SIGNS: Blood pressure 136/77, pulse 60, respiratory rate 20, and temperature 98.3. LUNGS: Clear. CARDIOVASCULAR SYSTEM: S1 and S2, regular. ABDOMEN: Soft. ASSESSMENT: 1. Deep venous thrombosis of the left lower extremity. 2. Peripheral arterial disease. 3. Diabetes. 4. Hypertension. PLAN: Start the patient on Xarelto. The patient is requesting subacute rehab. Samm Banda MD
[2019-04-09 13:33] VITALS: O2SAT 100
== END 2019-04-06 14:57 | DRG 301 ==
LOC: C.ER 18:02 → C.9E 20:00 → C.3T 21:38 → OBSVTOIN 04-03 15:56
PROVIDERS: ADMIT Internal Medicine; ATTEND Internal Medicine
DX: I82.402 Acute embolism and thrombosis of unspecified deep veins of left lower extremity (principal); I10 Essential (primary) hypertension; E78.5 Hyperlipidemia, unspecified; F17.210 Nicotine dependence, cigarettes, uncomplicated; I25.10 Atherosclerotic heart disease of native coronary artery without angina pectoris; J44.9 Chronic obstructive pulmonary disease, unspecified; N40.0 Benign prostatic hyperplasia without lower urinary tract symptoms; Z91.81 History of falling; E11.65 Type 2 diabetes mellitus with hyperglycemia; E11.51 Type 2 diabetes mellitus with diabetic peripheral angiopathy without gangrene; Z85.828 Personal history of other malignant neoplasm of skin